=== PATIENT | female | born 1960 | race Caucasian/White ===

== ENCOUNTER 2020-01-06 06:09 | Day surgery (SDC) | payer BC ==
[2019-12-29 15:37] VITALS: BMI 33.2
[2020-01-06] MEDS ORDERED: BUPIVACAINE HCL 0.25% 125 MG/50 ML VIAL ONE (07:18)
[2020-01-06] MEDS ORDERED: MIDAZOLAM HCL 2 MG/2 ML SINGLE DOSE VIAL ONE (07:25)
[2020-01-06] MEDS ORDERED: SUCCINYLCHOLINE CHLORIDE 200 MG/10 ML SYRINGE ONE (07:25)
[2020-01-06] MEDS ORDERED: PROPOFOL 20 ML ONE ×3 (07:25→09:24)
[2020-01-06] MEDS ORDERED: ROCURONIUM BROMIDE 50 MG/5 ML SYRINGE ONE (07:25)
[2020-01-06] MEDS ORDERED: KETOROLAC TROMETHAMINE 30 MG/1 ML VIAL ONE ×2 (07:26→10:00)
[2020-01-06] MEDS ORDERED: ONDANSETRON 4 MG/2 ML VIAL ONE ×3 (07:26→10:05)
[2020-01-06] MEDS ORDERED: LIDOCAINE HCL/PF 2% SDV 5ML VIAL ONE ×2 (07:26→10:00)
[2020-01-06] MEDS ORDERED: ceFAZolin SODIUM 1 GM VIAL ONE ×2 (07:26→10:00)
[2020-01-06] MEDS ORDERED: LIDOCAINE HCL 2% JELLY (5 ML/TUBE) ONE ×2 (07:26→10:00)
[2020-01-06] MEDS ORDERED: DEXAMETHASONE SOD PHOSPHATE 4 MG/1 ML VIAL ONE ×2 (07:26→10:00)
[2020-01-06] MEDS ORDERED: SCOPOLAMINE HYDROBROMIDE 1 PATCH PATCH.TD72 ONE (07:32)
[2020-01-06] MEDS ORDERED: ALBUTEROL SO4 HFA INHALER IH ONE (07:33)
[2020-01-06] MEDS ORDERED: BUPIVACAINE HCL/PF 0.25% (2.5MG/ML) 10 ML VIAL IJ ONE (09:05)
[2020-01-06] MEDS ORDERED: NEOSTIGMINE METHYLSULFATE 0.5 MG/ML - 10 ML MDV ONE (09:23)
[2020-01-06] MEDS ORDERED: GLYCOPYRROLATE 0.2 MG/1 ML VIAL ONE (09:23)
[2020-01-06] MEDS ORDERED: ENOXAPARIN NA (PORCINE) 40 MG/0.4 ML DISP.SYRIN SQ ONE ×2 (09:41→13:20)
[2020-01-06] MEDS ORDERED: oxyCODONE HCL 5 MG TABLET PO PRN ×2 (09:41→11:12)
[2020-01-06] MEDS ORDERED: ONDANSETRON 4 MG/2 ML VIAL IVPUSH PRN (09:44)
[2020-01-06] MEDS ORDERED: SODIUM CHLORIDE 1,000 ML IV SCH (09:45)
--- NOTE | 2020-01-06 09:50 | OP ---
Operative Note - Note: Operative Date: 01/06/20 Pre-Operative Diagnosis: Epigastric Pain. GE Reflux Disease. Vomiting Operation: Removal of Gastric Band plus subcutaneous port. Excision of fibrous capsule around stomach. Diagnostic Laparoscopy Findings: Gastric Band with significant scar tissue around Band and embedded into left lobe of liver Post-Operative Diagnosis: Same as Pre-op (Fibrous capsule around stomach) Surgeon: Uli Palomino Airplane Patroller: Gustabo Blanchard Anesthesia: General Specimens Removed: Gastric Band plus subcutaneous port Estimated Blood Loss (mls): 30 Operative Report Dictated: Yes
[2020-01-06] MEDS ORDERED: FAMOTIDINE 20 MG/50 ML IVPB 20 MG/50 ML MG IVPB SCH (10:00)
[2020-01-06] MEDS ORDERED: FAMOTIDINE 20 MG/50 ML IVPB 20 MG/50 ML MG IVPB ONE (10:05)
[2020-01-06] MEDS ORDERED: FAMOTIDINE 20 MG PREMIXED IVPB IVPB ONE (10:10)
--- NOTE | 2020-01-06 11:14 | OP ---
DATE OF OPERATION: 01/06/2020 PREOPERATIVE DIAGNOSES: 1. Epigastric abdominal pain. 2. Gastroesophageal reflux disease. 3. Vomiting. POSTOPERATIVE DIAGNOSES: 1. Epigastric abdominal pain. 2. Gastroesophageal reflux disease. 3. Vomiting. 4. Fibrous capsule around the band. PROCEDURES PERFORMED: 1. Removal of gastric band plus subcutaneous port component. 2. Excision of fibrous capsule around the band. 3. Diagnostic laparoscopy. OPERATING SURGEON: Uli Palomino MD. DIESEL TECHNICIAN MECHANIC: Gustabo Blanchard MD ANESTHESIA: General. EXPECTED BLOOD LOSS: 30 mL. DESCRIPTION OF PROCEDURE: Patient was brought into the operating room, placed on the OR table in the supine position. All precautions were taken initially including padding for the back and the feet, and Venodyne boots were placed on both lower extremities. At that point, the abdomen was prepped and draped in the usual manner. A Veress needle was placed in the left upper quadrant, and a pneumoperitoneum was established. Using a laparoscopic camera through a No. 5 trocar under direct vision, attempts were made to place this trocar into the left upper quadrant location. However, once entering the peritoneum, there were noted to be adhesions, so the trocar needs to be withdrawn from the abdominal cavity. At that point, an incision was made above the umbilicus, and a No. 5 bladeless trocar under direct vision with the camera was placed into the abdominal cavity. Once this was done, the camera was placed into the abdomen. There were noted to be a large amount of adhesions, which included mostly omentum up against the abdominal wall. Under direct vision, a No. 5 bladeless trocar was then placed through the left costal margin, and the camera was placed through that trocar. That trocar was able to give vision in the right upper quadrant where a No. 5 bladeless trocar was placed. The No. 5 bladeless trocar above the umbilicus was now replaced under direct vision with a No. 15 bladeless trocar, and finally, a No. 5 bladeless trocar was placed in the left upper quadrant under direct vision to avoid the adhesions. At this junction, a Danya liver retractor was placed in the epigastrium to retract the left lobe of the liver. The patient was then placed in a 20-degree reverse Trendelenburg position by Anesthesia. The band tubing was noted going to the band, and the band was then seen very high up just below the esophagogastric junction with significant scar tissue. The band was also embedded into the liver. As the diversional therapist's assistant surgeon retracted the band tubing toward the patient's left side, the operating surgeon was able to dissect with the electrocautery a fibrous capsule and scar tissue off the band on the lesser curvature side. This continued to go medially toward the lesser curvature until the entire band on the lesser curvature was now exposed. The band tubing just off the band was now embedded into the undersurface of the left lobe of the liver, and this was dissected free with electrocautery until the tubing was now free from the liver. At this point, the operating surgeon retracted the band toward the patient's right side as the diversional therapist's assistant surgeon retracted the stomach inferiorly. Further scar tissue on the greater curvature side of the band was now dissected until the band was in full view. The band was then cut with the scissors and opened up and then the band tubing was cut at the take off to the subcutaneous port. The band was then removed from around the stomach in 1 piece and sent off the field as specimen to Pathology. Attention was directed to the stomach where there appeared to be no signs of any injury to the stomach wall, so at this point with the intra-abdominal portion complete, under direct vision, all trocars were removed with the pneumoperitoneum released. Attention was now directed to the subcutaneous port just above the umbilicus. The incision was extended for a short distance to the patient's right side, and the electrocautery was used to dissect the subcutaneous fat and the fibrous capsule around the port. Once the port was free of fibrous capsule, it was removed from the midline fascia and sent off the field as specimen to Pathology with the rest of the band specimen. At this point, all trocar sites received 0.25% Marcaine. The No. 15 trocar site with the port was first closed with 3-0 Vicryl in the subcutaneous tissue then all trocar sites were closed with 4-0 Biosyn in subcuticular fashion. Dressings were applied. Patient awoken from anesthesia and transferred out of the operating room to the recovery room in stable condition. Sawyer [id number]
[2020-01-06] MEDS ORDERED: ENOXAPARIN NA (PORCINE) 40 MG/0.4 ML DISP.SYRIN SQ SCH (12:00)
[2020-01-06] MEDS ORDERED: PROMETHAZINE HCL 25 MG/1 ML VIAL ONE (12:52)
[2020-01-06 15:45] VITALS: BP 131/77; PULSE 74; TEMP 98.2
--- NOTE | 2020-01-09 16:11 | PATH ---
Surgical Pathology Report Patient Name: EVAN GRAHAM Med. Rec. #: [id number] /Age/Gender: 1960 (Age: 59) / F Account: [id number] Location: [facility] Taken: 01/06/2020 Received: 01/06/2020 Reported: 01/09/2020 Physicians: Uli Palomino M.D. Specimen(s) Received GASTRIC BAND & PORT Clinical History Mechanical complication Final Diagnosis GASTRIC BAND AND PORT, REMOVAL: GASTRIC BAND AND PORT, DESCRIBED (GROSS EXAMINATION ONLY). Electronically Signed Anne Rae M.D. Gross Description Received fresh labeled "gastric band and port," is a 4 cm in diameter white, circular device, consistent with a gastric band. The band displays a 23 cm in length portion of white tubing extending from one aspect. Also received in the same container is a 3 cm in diameter x 1.5 cm in depth white, circular device, consistent with a port. The port displays a 31 cm in length portion of white tubing extending from one aspect. No soft tissue is present. No sections are submitted, gross only. 01/06/2020 saudi01/06/2020
== END 2020-01-06 14:15 | disposition home or self-care (01) ==
LOC: FASU 06:09
PROVIDERS: ATTEND Surgery
PROC: 0DP60CZ Removal of Extraluminal Device from Stomach, Open Approach (ICD-10-PCS; 2020-01-06)
PROC: 0DN64ZZ Release Stomach, Percutaneous Endoscopic Approach (ICD-10-PCS; 2020-01-06)
PROC: 0DP64CZ Removal of Extraluminal Device from Stomach, Percutaneous Endoscopic Approach (ICD-10-PCS; principal; 2020-01-06 08:13)
DX: R10.13 Epigastric pain (principal); K21.9 Gastro-esophageal reflux disease without esophagitis; R11.10 Vomiting, unspecified; K31.89 Other diseases of stomach and duodenum; Z98.84 Bariatric surgery status
CPT/HCPCS: 88300-TC; 94760

== ENCOUNTER 2020-05-21 08:37 | Day surgery (SDC) | payer BC ==
[2020-05-14 12:15] VITALS: BMI 35.2
[2020-05-21] MEDS ORDERED: PROPOFOL 20 ML ONE ×3 (10:23→13:31)
[2020-05-21] MEDS ORDERED: ceFAZolin SODIUM 1 GM VIAL ONE (10:23)
[2020-05-21] MEDS ORDERED: SODIUM CHLORIDE 0.9% P/F 10 ML VIAL IJ ONE ×2 (10:23→11:50)
[2020-05-21] MEDS ORDERED: DEXAMETHASONE SOD PHOSPHATE 4 MG/1 ML VIAL ONE (10:23)
[2020-05-21] MEDS ORDERED: fentaNYL CITRATE 250 MCG/5 ML VIAL ONE (10:23)
[2020-05-21] MEDS ORDERED: LIDOCAINE HCL/PF 2% SDV 5ML VIAL ONE ×2 (10:23→12:39)
[2020-05-21] MEDS ORDERED: ROCURONIUM BROMIDE 50 MG/5 ML SYRINGE ONE ×2 (10:29→13:36)
[2020-05-21] MEDS ORDERED: BUPIVACAINE HCL/PF 2.5 MG/ML - 30 ML VIAL IJ ONE (10:31)
[2020-05-21] MEDS ORDERED: ONDANSETRON 4 MG/2 ML VIAL IVPUSH PRN ×3 (10:43→15:23)
[2020-05-21] MEDS ORDERED: oxyCODONE HCL 5 MG TABLET PO PRN (10:43)
[2020-05-21] MEDS ORDERED: LACTATED RINGERS SOLUTION 1,000 ML IV SCH (10:45)
[2020-05-21] MEDS ORDERED: ACETAMINOPHEN INJECTION 100 ML IVPB ONE (11:37)
[2020-05-21] MEDS ORDERED: HALOPERIDOL LACTATE 5 MG/ML ONE (11:37)
[2020-05-21] MEDS ORDERED: SCOPOLAMINE HYDROBROMIDE 1 PATCH PATCH.TD72 ONE (11:37)
[2020-05-21] MEDS ORDERED: MIDAZOLAM HCL 2 MG/2 ML SINGLE DOSE VIAL ONE (11:40)
[2020-05-21] MEDS ORDERED: ROPIVACAINE HCL 0.5% 30ML VIAL ONE (11:40)
[2020-05-21] MEDS ORDERED: NEOSTIGMINE METHYLSULFATE 0.5 MG/ML - 10 ML MDV ONE (12:15)
[2020-05-21] MEDS ORDERED: GLYCOPYRROLATE 0.2 MG/1 ML VIAL ONE (12:15)
[2020-05-21] MEDS ORDERED: ONDANSETRON 4 MG/2 ML VIAL ONE ×2 (12:16→14:50)
[2020-05-21] MEDS ORDERED: HYDROmorphone HCL/PF 1 MG/ML VIAL ONE (13:05)
[2020-05-21] MEDS ORDERED: LABETALOL HCL 5 MG/1 ML (100MG/20 ML VIAL) ONE ×2 (13:36→14:50)
[2020-05-21] MEDS ORDERED: HYDROmorphone HCL CARPU-JECT 2 MG/1 ML DISP.SYRIN IVPB PRN (14:36)
[2020-05-21] MEDS ORDERED: METOCLOPRAMIDE HCL INJECTION 10 MG/2 ML VIAL ONE (14:43)
[2020-05-21] MEDS ORDERED: SODIUM CHLORIDE 1,000 ML IV SCH ×2 (14:45→15:15)
--- NOTE | 2020-05-21 14:45 | OP ---
Operative Note - Note: Operative Date: 05/21/20 Pre-Operative Diagnosis: Ventral Abdominal Hernia Operation: Repair of Ventral Abdominal Hernia with Mesh. Lysis of adhesions. Diagnostic Laparoscopy Findings: Moderate-sized Ventral Abdominal Hernia with Colon noted with hernia sac. Adhesions lysed between hernia sac,omentum and abdominal contents Post-Operative Diagnosis: Same as Pre-op (abdominal adhesions) Surgeon: Uli Palomino Air Traffic Instructor: Gustabo Blanchard Anesthesia: General Estimated Blood Loss (mls): 100 Operative Report Dictated: Yes
[2020-05-21] MEDS ORDERED: METOCLOPRAMIDE HCL INJECTION 10 MG/2 ML VIAL IVPUSH ONE (14:46)
[2020-05-21] MEDS ORDERED: METOCLOPRAMIDE HCL INJECTION 10 MG/2 ML VIAL IVPUSH SCH (15:00)
[2020-05-21] MEDS ORDERED: FAMOTIDINE 20 MG PREMIXED IVPB IVPB ONE (15:00)
[2020-05-21 15:32] LABS: HEMATOCRIT 41.8 % (32.4-45.2); HEMOGLOBIN 14.2 GM/dl (10.7-15.3); MCH 29.9 pg (25.7-33.7); MEAN CELL VOLUME 87.8 fl (80-96); MEAN PLT VOLUME 8.8 fl (7.5-11.1); PLATELET COUNT 293 K/MM3 (134-434); RBC 4.76 M/mm3 (3.60-5.2); RDW 13.8 % (11.6-15.6); WHITE BLOOD COUNT 13.4 K/mm3 (4.0-10.8)
[2020-05-21 15:48] LABS: ALBUMIN 3.8 g/dl (3.4-5.0); BILIRUBIN,TOTAL 0.7 mg/dl (0.2-1); CALCIUM 8.4 mg/dl (8.5-10); CREATININE 0.8 mg/dl (0.55-1.3); POTASSIUM 4.1 mmol/L (3.5-5.1); TOT PROT 6.4 g/dl (6.4-8.2)
[2020-05-21] MEDS ORDERED: HYDROmorphone HCL 0.5 MG/0.5 ML SYRINGE ONE ×2 (15:59→16:19)
[2020-05-21] MEDS ORDERED: LABETALOL HCL 5 MG/1 ML (100MG/20 ML VIAL) IVPUSH ONE (15:59)
[2020-05-21] MEDS: HYDROmorphone HCL CARPU-JECT 2 MG/1 ML DISP.SYRIN IVPB PRN ×2 (16:00→16:20)
[2020-05-21] MEDS: METOCLOPRAMIDE HCL INJECTION 10 MG/2 ML VIAL IVPUSH SCH (20:52)
[2020-05-21] MEDS: oxyCODONE HCL 5 MG TABLET PO PRN (21:02)
[2020-05-21] MEDS: FAMOTIDINE 20 MG/50 ML IVPB 20 MG/50 ML MG IVPB SCH (21:07)
[2020-05-22] MEDS: oxyCODONE HCL 5 MG TABLET PO PRN ×2 (00:52→05:42)
[2020-05-22] MEDS: METOCLOPRAMIDE HCL INJECTION 10 MG/2 ML VIAL IVPUSH SCH ×2 (02:17→09:33)
[2020-05-22 05:50] VITALS: BP 135/82; PULSE 82; TEMP 98.2
[2020-05-22 08:15] LABS: HEMATOCRIT 37.5 % (32.4-45.2); HEMOGLOBIN 12.5 GM/dl (10.7-15.3); MCH 29.2 pg (25.7-33.7); MCHC 33.3 g/dl (32.0-36.0); MEAN CELL VOLUME 87.6 fl (80-96); MEAN PLT VOLUME 8.4 fl (7.5-11.1); PLATELET COUNT 246 K/MM3 (134-434); RBC 4.28 M/mm3 (3.60-5.2); RDW 13.5 % (11.6-15.6); WHITE BLOOD COUNT 8.7 K/mm3 (4.0-10.8)
[2020-05-22 08:19] LABS: ALBUMIN 3.6 g/dl (3.4-5.0); BILIRUBIN,TOTAL 0.9 mg/dl (0.2-1); CALCIUM 8.7 mg/dl (8.5-10); CREATININE 0.8 mg/dl (0.55-1.3); POTASSIUM 4.8 mmol/L (3.5-5.1); TOT PROT 5.9 g/dl (6.4-8.2)
[2020-05-22] MEDS: FAMOTIDINE 20 MG/50 ML IVPB 20 MG/50 ML MG IVPB SCH (09:33)
--- NOTE | 2020-05-22 11:01 | OP ---
DATE OF OPERATION: 05/21/2020 PREOPERATIVE DIAGNOSIS: Ventral abdominal wall hernia. POSTOPERATIVE DIAGNOSES: 1. Ventral abdominal wall hernia. 2. Abdominal adhesions. PROCEDURE PERFORMED: 1. Repair of ventral abdominal wall hernia with mesh. 2. Lysis of adhesions. 3. Diagnostic laparoscopy. OPERATING SURGEON: Uli Palomino MD METAL HARDENER: Gustabo Blanchard MD ANESTHESIA: General. OPERATIVE PROCEDURE: Patient was brought into the operating room, placed on the OR table in the supine position. All precautions taken initially including padding for the back, and Venodyne boots were placed on both lower extremities. At that point the abdomen was prepped and draped in the usual manner. A Veress needle was placed in the left upper quadrant more lateral than usual to get away from the midline abdominal wall hernia. In the left upper quadrant under direct vision with a laparoscope, a No. 5 bladeless trocar was placed in the left upper quadrant. Through that trocar, a laparoscopic camera was placed. Immediately upon placing the camera, noted to be a large amount of adhesions between the colon and the anterior abdominal wall right in front of the camera. Because of the improper visualization, under direct vision a No. 5 bladeless trocar was placed in the right side more lateral and slightly more inferior. The laparoscopic camera was now placed through that port. This was able to give a true diagnostic laparoscopy of the entire abdomen, and it showed that the hernia off the midline on the right side in the area of falciform ligament, but there was a lot of colon and mesentery stuck to the abdominal wall. It was felt that it would be dangerous to continue laparoscopically, so it was decided that the procedure would be converted to an open technique. At that point, a scalpel was used to make an incision over the hernia just above the midline at above the umbilicus. This incision went for about 5 cm transversely, and then electrocautery was used to dissect the subcutaneous tissue until the hernia contents were come upon. The skin was lifted up, and the content between the hernia sac and the subcutaneous tissue was then dissected with electrocautery as the administrative assistant receptionist surgeon continued to retract the skin. The edge of the fascia, which was the hernia on the upper portion or superior portion, was now addressed, and electrocautery was used to dissect all the fat and scar tissue off of that until the fascia was noted on the superior portion of the hernia wall. In a clockwise direction, this was extended to the right side of the abdomen where again the fascia was cleaned of all scar tissue and of all subcutaneous fat, and this continued in a circular drain until the entire fascia surrounding the hernia was now clear. At this point, carefully dissecting the hernia sac off of the rim of fascia in order to better expose the fascia for proper repair. The hernia sac was entered, and evaluation of the contents showed the transverse colon, which was returned to the abdominal cavity with no sign of injury. Small bowel was also lifted up and explored for about 4 feet in both directions without sign of injury, and these were then returned to the abdominal cavity. The hernia sac was then dissected off of the fascia and returned to the abdominal cavity. At this point, a double closure was performed, initial closure being primary to close the fascia over the content of the abdominal cavity. This included 0 Vicryl sutures placed in an interrupted fashion, [id number], from superior to inferior. This was then followed by an onlay mesh, which was a composite mesh, placed over the repair and over the fascia, and then 0 Prolene sutures were used in a clockwise direction to tack this down to the fascia. When it was completed, the repair appeared intact. There was a large amount of subcutaneous space which was worrisome, so therefore a Silvano-Simeon drain was placed and brought out of the right side of the abdomen. Closure of the subcutaneous tissue was performed to try to close the space. This was done with 3-0 Vicryl in interrupted fashion, and then the skin was closed with alecia. Patient awoken from anesthesia and transferred out of the operating room to the recovery room in stable condition. EXPECTED BLOOD LOSS: 100 mL. DISPOSITION: Patient transferred to recovery room in stable condition. Sawyer [id number]
--- NOTE | 2020-05-22 11:03 | PN ---
Progress Note (short form) - Note Progress Note: Afebrile; VSS Pt doing well No N/V- on Reglan, Zofran (PRN) States moderate mid-abdominal pain near incision P/E- Abd- all incisions with band-aids (no drainage noted) WBC-8.7 H/H-12.5/37.5 J-P drain- 60 cc/24 hours P- D/C pt home All instructions given regarding wound care, measuring J-P drainage daily F/U in 7-10 days in office
--- NOTE | 2020-05-22 13:59 | DS ---
DATE OF ADMISSION: 05/21/2020 DATE OF DISCHARGE: 05/22/2020 HISTORY OF PRESENT ILLNESS AND HOSPITAL COURSE: Patient is a 59-year-old woman with a history of abdominal hernia for a few months. The hernia became more symptomatic and decided to undergo operative repair. Patient admitted to [facility] on May 21, 2020, and underwent an open ventral hernia repair with mesh. The details of the procedure are described in the operative note. Postoperatively the patient was sent to the recovery room where she was stabilized and then sent to the floor. On the medical-surgical floor the patient had significant pain because the bowel hernia was larger than originally anticipated. It required more dissection and a larger repair and a larger use of mesh. Because of the problem with pain control and also a lot of nausea after anesthesia it was decided that patient would need to be admitted overnight for further observation and treatment of the pain and nausea. Patient had an uneventful night and on the morning of May 22, 2020, with normal vital signs and normal lab work the patient is ambulating slowly because of discomfort in the abdomen. She was given full instructions for wound care and proper diet and she is scheduled to be discharged home on May 22, 2020. Patient will follow up in the surgeon's office in 7-10 days. JACKIE WATSON M.D. [id number]
== END 2020-05-22 13:15 | disposition home or self-care (01) ==
LOC: FASUSAT 08:37 → FASU 08:37 → EDSTATUS 13:00 → FM/S 17:41 → FASUSAT 05-22 13:15
PROVIDERS: ATTEND Surgery
PROC: 0WUF0JZ Supplement Abdominal Wall with Synthetic Substitute, Open Approach (ICD-10-PCS; 2020-05-21)
PROC: 0WJF4ZZ Inspection of Abdominal Wall, Percutaneous Endoscopic Approach (ICD-10-PCS; 2020-05-21)
PROC: 0WUF0JZ Supplement Abdominal Wall with Synthetic Substitute, Open Approach (ICD-10-PCS; principal; 2020-05-21 12:27)
DX: K43.9 Ventral hernia without obstruction or gangrene (principal); K66.0 Peritoneal adhesions (postprocedural) (postinfection); Z53.31 Laparoscopic surgical procedure converted to open procedure
CPT/HCPCS: 36415; 74018-TC-FY; 80053; 85027; 94760; J0131

== ENCOUNTER 2020-06-07 13:46 | Inpatient (IN) | payer BC ==
--- NOTE | 2020-06-07 13:59 | PDOC ---
Attending Attestation - Resident Resident Name: Janes Olsen - ED Attending Attestation I have performed the following: I have examined & evaluated the patient, The case was reviewed & discussed with the resident, I agree w/resident's findings & plan, Exceptions are as noted - HPI HPI: 06/07/20 13:52 60YOF with h/o gastric band now s/p removal in 12/[address] Palomino (also with laparoscopy and excision of fibrous capsule around stomach), subsequent ventral hernia s/p repair 04/[address] Palomino, who p/w abdominal cramping. Discharge - Discharge Information Condition: Stable - Follow up/Referral Referrals: Uli Palomino MD [Primary Care Provider] - - Patient Discharge Instructions - Post Discharge Activity
--- NOTE | 2020-06-07 14:11 | PDOC ---
History of Present Illness - General Chief Complaint: Pain, Acute Stated Complaint: LOWER ABDOMINAL CRAMPING PAIN FOR 4 DAys Time Seen by Provider: 06/07/20 13:51 History Source: Patient Exam Limitations: No Limitations - History of Present Illness Initial Comments: 06/07/20 14:00 60YOF with h/o gastric band now s/p removal in 12/[address] Palomino (also with laparoscopy and excision of fibrous capsule around stomach), subsequent ventral hernia s/p repair 04/[address] Palomino, who p/w abdominal cramping worse in the left upper and lower quadrants and radiating to the RLQ x4 days. Also with h/o kidney stones, diverticulosis without diverticulitis, has had colonoscopy in the past which was otherwise negative. Was just at Dr. Palomino's office with the pain and was instructed to come to the ED for a CT and evaluation. She additionally notes nausea but denies f/c, diarrhea, constipation, rectal bleeding or black stool, dysuria, hematuria, vaginal bleeding/discharge, back pain, or other symptoms. Still had her gallbladder with no known h/o stones. Past History - Medical History Allergies/Adverse Reactions: Allergies Allergy/AdvReac Type Severity Reaction Status Date / Time ketamine AdvReac Intermediate Verified 06/07/20 14:30 Home Medications: Ambulatory Orders Alprazolam [Xanax] 1 mg PO PRN PRN 12/29/19 Budesonide/Formeterol Fumarate [SYMBICORT 160/4.5mcg -] 2 inh IH BID 12/29/19 Multivitamin [Multiple Vitamins] 1 each PO DAILY 12/29/19 Omeprazole 20 mg PO DAILY 12/29/19 Zinc 50 mg PO DAILY 12/29/19 Anemia: No Asthma: Yes Cancer: Yes (skin CA) Cardiac Disorders: No CVA: No COPD: No CHF: No Dementia: No Diabetes: No GI Disorders: Yes (GERD/HIATAL HERNIA) Disorders: No HTN: No Hypercholesterolemia: No Liver Disease: No Seizures: No Thyroid Disease: No - Surgical History Abdominal Surgery: Yes (LAP BAND 2004/REMOVED 12/2019) Appendectomy: No Cardiac Surgery: No Cholecystectomy: No Lung Surgery: No Neurologic Surgery: No Orthopedic Surgery: Yes (Jas TKR) - Psycho-Social/Smoking History Smoking History: Never smoked Have you smoked in the past 12 months: No Review of Systems - Review of Systems Able to Perform ROS?: Yes Comments:: 06/07/20 14:13 GEN: no fever, chills, malaise, or generalized weakness HEENT: no ear pain, congestion, sore throat, vision change, or eye pain CV: no chest pain, palpitations, lightheadedness, syncope, or edema RESP: no SOB, wheezing, or cough GI: abdominal pain, nausea, dry heaving, no diarrhea, constipation, or rectal bleed : no dysuria, hematuria, or discharge MSK: no muscle weakness or pain, no joint swelling or pain NEURO: no headache, vertigo, numbness, tingling, or focal weakness PSYCH: no SI, HI, or behavior change SKIN: no jaundice, rash, lesions, or unexplained bruises ROS otherwise negative except as noted in HPI *Physical Exam - Physical Exam 06/07/20 14:14 GENERAL: uncomfortable and occasionally yelling in pain, splinting abdomen with left hand, A/Ox4, moderate distress, answers questions appropriately, significant other at bedside HEENT: PERRLA, EOMI, moist mucous membranes NECK/BACK: no midline ttp, no spinal stepoff or deformity, no hematoma, full ROM, neck supple CARDIOVASCULAR: regular rate/rhythm, no MGR, strong peripheral pulses, capillary refill <2 seconds, extremities wwp, no edema LUNGS/RESPIRATORY: no respiratory distress, CTAB GI/ABDOMEN: abdomen protuberant, wearing abdominal binder initially, +moderate ttp : no CVA tenderness MSK/EXTREMITIES: no muscle atrophy, no acute deformity SKIN: warm and dry, no pallor, no jaundice, no rash, no pathologic-appearing bruising, no skin breakdown, no cuts, no lesions NEUROLOGICAL: GCS 15, CN II-XII grossly intact, 5/5 strength proximally and distally, no facial droop Heart Score/ECG Review #1 06/07/20 14:38 Sinus rhythm, rate 101, left axis deviation, normal intervals, ST depressions in II and slightly in aVF/V3-4, TWI in III/aVF. No prior EKG available for comparison. ED Treatment Course - LABORATORY CBC & Chemistry Diagram: 06/07/20 14:20 06/07/20 14:15 Medical Decision Making - Medical Decision Making 60YOF with h/o multiple abdominal surgeries with lap band s/p removal, also hernia repair 2-3 weeks ago, p/w abdominal pain and nausea. Initial Vital Signs Temp Pulse Resp BP Pulse Ox 99.7 F H 104 H 20 135/91 98 06/07/20 13:47 06/07/20 13:47 06/07/20 13:47 06/07/20 13:47 06/07/20 13:47 On exam she is tender to left side diffusely, protuberant abdomen, moderate dis tress which seems to come and go (colicky?). There is concern for hollow viscous perforation, hernia (w/ possible incarceration/strangulation), PUD, internal hernia, SBO, diverticulitis, renal rolic, JOURNEYMAN MILLWRIGHT pathology e.g. ovarian torsion, etc. Less likely but also considered are biliary pathology and appendicitis, etc. Getting abdominal labs as below, also EKG, portable upright CXR r/o free air, also CT abdomen/pelvis with IV and PO contrast given the fact that she had bariatric surgeries 06/07/20 15:19 No e/o pneumoperitoneum on upright portable CXR. Appears much more comfortable after morphine + Zofran. BUN elevated and ordered/sent FOBT. Last Vital Signs Temp Pulse Resp BP Pulse Ox 100.8 F H 104 H 20 146/89 100 06/07/20 14:45 06/07/20 14:45 06/07/20 14:45 06/07/20 14:45 06/07/20 14:45 Laboratory Tests 06/07/20 06/07/20 06/07/20 14:15 14:15 14:20 WBC 4.9 RBC 5.05 Hgb 14.8 Hct 44.4 D MCV 87.8 MCH 29.3 MCHC 33.4 RDW 13.2 Plt Count 308 MPV 8.3 Absolute Neuts (auto) 3.1 Neutrophils % 63.2 Lymphocytes % 20.7 Monocytes % 12.4 H Eosinophils % 2.8 Basophils % 0.9 PT with INR INR PTT (Actin FS) Sodium 140 Potassium 4.2 Chloride 97 L Carbon Dioxide 24 Anion Gap 19 H BUN 34.0 H Creatinine 0.8 Est GFR (CKD-EPI)AfAm 92.87 Est GFR (CKD-EPI)NonAf 80.13 Random Glucose 109 H Lactic Acid Calcium 9.7 Phosphorus 4.5 Magnesium 1.9 Total Bilirubin 1.5 H AST 30 ALT 14 Alkaline Phosphatase 71 D Creatine Kinase 50 Troponin I < 0.03 Total Protein 7.3 Albumin 4.0 Stool Occult Blood 06/07/20 06/07/20 06/07/20 14:20 14:22 15:30 WBC RBC Hgb Hct MCV MCH MCHC RDW Plt Count MPV Absolute Neuts (auto) Neutrophils % Lymphocytes % Monocytes % Eosinophils % Basophils % PT with INR 12.9 INR 1.16 PTT (Actin FS) 23.3 L Sodium Potassium Chloride Carbon Dioxide Anion Gap BUN Creatinine Est GFR (CKD-EPI)AfAm Est GFR (CKD-EPI)NonAf Random Glucose Lactic Acid 1.2 Calcium Phosphorus Magnesium Total Bilirubin AST ALT Alkaline Phosphatase Creatine Kinase Troponin I Total Protein Albumin Stool Occult Blood Negative CT shows high-grade SBO. 06/07/20 16:30 I placed a call to Dr. Palomino who is in the clinic still, but with a patient. Message will be given to him about the patient's high-grade SBO and he will call back when he has finished the patient visit per casino assistant manager. 06/07/20 17:[address] Palomino who will see the patient while the hospital, requests admission to hospitalist, consult order placed and blank decision to admit order placed. NG tube to be placed. The patient does remain a bit painful and thus 2mg morphine dosed. Discharge - Discharge Information Problems reviewed: Yes Clinical Impression/Diagnosis: Nausea Abdominal pain Qualifiers: Abdominal location: unspecified location Qualified Code(s): R10.9 - Unspecified abdominal pain Condition: Stable - Admission Yes - Follow up/Referral Referrals: Uli Palomino MD [Primary Care Provider] - - Patient Discharge Instructions - Post Discharge Activity
[2020-06-07] MEDS ORDERED: ONDANSETRON 4 MG/2 ML VIAL IVPUSH ONE (14:12)
[2020-06-07] MEDS ORDERED: SODIUM CHLORIDE 0.9% 500 ML INFUS.BAG IV ONE (14:12)
[2020-06-07] MEDS ORDERED: morphine CARPU-JECT 4 MG/1 ML DISP.SYRIN IVPUSH ONE (14:12)
[2020-06-07] MEDS ORDERED: morphine SULFATE 4 MG/ML VIAL ONE ×2 (14:35→17:01)
[2020-06-07] MEDS ORDERED: ONDANSETRON 4 MG/2 ML VIAL ONE (14:35)
[2020-06-07 14:37] LABS: BASO % 0.9 % (0-2.0); EOS % 2.8 % (0-4.5); HEMATOCRIT 44.4 % (32.4-45.2); HEMOGLOBIN 14.8 GM/dl (10.7-15.3); LYMPH % 20.7 % (8-40); MCH 29.3 pg (25.7-33.7); MCHC 33.4 g/dl (32.0-36.0); MEAN CELL VOLUME 87.8 fl (80-96); MEAN PLT VOLUME 8.3 fl (7.5-11.1); MONO % 12.4 % (3.8-10.2); NEUT % 63.2 % (42.8-82.8); PLATELET COUNT 308 K/MM3 (134-434); RBC 5.05 M/mm3 (3.60-5.2); RDW 13.2 % (11.6-15.6); WHITE BLOOD COUNT 4.9 K/mm3 (4.0-10.8)
[2020-06-07 14:56] LABS: BILIRUBIN,TOTAL 1.5 mg/dl (0.2-1); CALCIUM 9.7 mg/dl (8.5-10); CREATININE 0.8 mg/dl (0.55-1.3); MAGNESIUM 1.9 mg/dL (1.8-2.4); PHOSPHOROUS 4.5 mg/dl (2.5-4.9); POTASSIUM 4.2 mmol/L (3.5-5.1); TOT PROT 7.3 g/dl (6.4-8.2)
[2020-06-07 14:59] LABS: ACTIVATED PTT 23.3 SECONDS (25.2-36.5)
[2020-06-07 15:04] LABS: INR 1.16 (0.82-1.09); PROTHROMBIN TIME (PATIENT) 12.9 SEC (10.2-13.0)
[2020-06-07] MEDS ORDERED: morphine CARPU-JECT 2 MG/1 ML DISP.SYRIN IVPUSH ONE (16:57)
[2020-06-07] MEDS ORDERED: TETRACAINE/BENZOCAINE/BUTAMBEN 20 GM SPR TP ONE (17:29)
[2020-06-07] MEDS ORDERED: LIDOCAINE HCL 2% JELLY (30 ML/TUBE) TP ONE (17:29)
[2020-06-07] MEDS ORDERED: LIDOCAINE HCL 2% JELLY (5 ML/TUBE) ONE (17:30)
--- NOTE | 2020-06-07 17:54 | CONSULT ---
Consult - text type - Consultation Consultation Note: 06/07/2020 60 y.o.female who presents with 3 day history of colicky abdominal pain. Patient states pain is increasing daily and also c/o vomiting. Vomitus not reported as coffee grounds. Pt has been moving her bowels recently. PMH- asthma, anxiety, GERD PSH- Lap-Band (2004), Lap-Band removal (2019), Ventral hernia repair (04/2020) P/E- Gen - Awake, alert, severe episodic pain in abdomen causing distress Abd- abdominal binder in place transverse supra-umbilical incision well-healed alecia removed in office today Ext- no swelling WBC-4.9 H/H-14.8/44.4 BUN/CR-34/0.8 CO2-24 Lactic Acid- 19 CT Scan- High-grade distal SB obstruction I- Small Bowel obstruction Rec- NPO NGT Serial abdominal x-rays Daily labs
[2020-06-07] MEDS ORDERED: DEXTROSE 5%-0.45% SALINE 1,000 ML IV SCH (20:15)
--- NOTE | 2020-06-07 21:11 | HP ---
Admitting History and Physical - Primary Care Physician PCP: Meri Soliz - Admission Chief Complaint: Abdominal Pain History of Present Illness: This is a 60 y/o female with a PMHx of Asthma, GERD, Anxiety, Severe Obesity, s/p Ventral Hernia repair 04/2020, Lap Band removal (12/2019), Lap Band (2004). Who presents to the ED from Dr Palomino's office for severe diffuse abdominal pain, constipation x 3-4 days. Patient reports having NB, bilious vomiting to day. She describes the pain as sharp and constant. Patient denies fever, chills, cough, SOB, dizziness, PALACIOS, CP, diarrhea, hematochezia, dysuria. History Source: Patient Limitations to Obtaining History: No Limitations - Past Medical History Pulmonary: Yes: Asthma Gastrointestinal: Yes: GERD Psych: Yes: Anxiety - Past Surgical History Past Surgical History: Yes: Bariatric Surgery (Lap Band (2004) Lap Band Removal (2019)), Hernia Repair (Ventral (04/2020)) - Smoking History Smoking history: Never smoked Have you smoked in the past 12 months: No - Alcohol/Substance Use Hx Alcohol Use: No History of Substance Use: reports: None - Social History Usual Living Arrangement: Yes: Alone ADL: Independent Occupation: Program Support Clerk History of Recent Travel: No Home Medications - Allergies Allergies/Adverse Reactions: Allergies Allergy/AdvReac Type Severity Reaction Status Date / Time ketamine AdvReac Intermediate Verified 06/07/20 14:30 - Home Medications Home Medications: Ambulatory Orders Alprazolam [Xanax] 1 mg PO PRN PRN 12/29/19 Budesonide/Formeterol Fumarate [SYMBICORT 160/4.5mcg -] 2 inh IH BID 12/29/19 Multivitamin [Multiple Vitamins] 1 each PO DAILY 12/29/19 Omeprazole 20 mg PO DAILY 12/29/19 Zinc 50 mg PO DAILY 12/29/19 Family Medical History Family Hx Coronary Artery Disease: Mother (HTN- ) Family Hx Diabetes: Mother () Family Hx Renal Disease: Mother (ESRD- ) Other Family History: Myelodysplastic Syndrome: Mother- Review of Systems - Review of Systems Constitutional: reports: Loss of Appetite Eyes: reports: No Symptoms HENT: reports: No Symptoms Neck: reports: No Symptoms Cardiovascular: reports: No Symptoms Respiratory: reports: No Symptoms Gastrointestinal: reports: Abdominal Pain, Nausea, Vomiting. denies: Diarrhea, Rectal Bleeding, Vomiting Blood Genitourinary: reports: No Symptoms. denies: Burning, Dysuria, Flank Pain, Hematuria Breasts: reports: No Symptoms Reported Musculoskeletal: reports: No Symptoms Integumentary: reports: No Symptoms Neurological: reports: No Symptoms, Weakness Hematology/Lymphatic: reports: No Symptoms Psychiatric: reports: No Symptoms Pain Intensity: 7 Physical Examination Vital Signs: Vital Signs Temperature 97.9 F 06/07/20 20:40 Pulse Rate 105 H 06/07/20 20:40 Respiratory Rate 18 06/07/20 20:40 Blood Pressure 154/82 06/07/20 20:40 O2 Sat by Pulse Oximetry (%) 98 06/07/20 20:40 Constitutional: Yes: Well Nourished, Mild Distress, Obese Eyes: Yes: WNL, Conjunctiva Clear, EOM Intact, PERRL HENT: Yes: Atraumatic, Normocephalic, Other (NGT- R- nare) Neck: Yes: WNL, Supple, Trachea Midline Cardiovascular: Yes: WNL, Regular Rate and Rhythm, S1, S2 Respiratory: Yes: Regular, CTA Bilaterally Gastrointestinal: Yes: Soft, Abdomen, Obese, Hypoactive Bowel Sounds, Tenderness , Tenderness, Epigastrium, Other (abdominal band- dressing with steri strips) ...Rectal Exam: Yes: Guaiac Negative Renal/: Yes: WNL Breast(s): Yes: WNL Musculoskeletal: Yes: WNL Extremities: Yes: WNL Edema: No Peripheral Pulses WNL: Yes Integumentary: Yes: WNL Wound/Incision: Yes: Steri Strips (abdomen), Dressing Dry and Intact (abdomen) Neurological: Yes: WNL, Alert, Oriented, Cran Nerves II-XII Intact ...Motor Strength: WNL Psychiatric: Yes: WNL, Alert, Oriented Labs: CBC, BMP 06/07/20 14:20 06/07/20 14:15 Imaging - Results Chest X-ray: Report Reviewed, Image Reviewed Cat Scan: Report Reviewed, Image Reviewed EKG: Pending Problem List - Problems (1) SBO (small bowel obstruction) Assessment/Plan: - CTAP image, report reviewed- High Grade SBO - Surgery following, notes reviewed - Continue IVF - NGT placed in ED - NGT low wall suction - Serial Abdominal Xrays - Monitor CBC, CMP - Monitor vitals - NPO Code(s): K56.609 - UNSP INTESTNL OBST, UNSP TO PARTIAL VERSUS COMPLETE OBST (2) Asthma Assessment/Plan: - stable - No acute flare - Chest Xray image and report reviewed- lungs clear, no acute pathology - Albuterol MDI, neb prn - Monitor Spo2, vitals Code(s): J45.909 - UNSPECIFIED ASTHMA, UNCOMPLICATED (3) GERD (gastroesophageal reflux disease) Assessment/Plan: - stable - Continue PPI IV Code(s): K21.9 - GASTRO-ESOPHAGEAL REFLUX DISEASE WITHOUT ESOPHAGITIS (4) Anxiety Assessment/Plan: - stable - Ativan IV prn Code(s): F41.9 - ANXIETY DISORDER, UNSPECIFIED (5) Severe obesity (BMI 35.0-35.9 with comorbidity) Assessment/Plan: - s/p Lap band, removal - Consider RD eval, when pts condition improves Code(s): E66.01 - MORBID (SEVERE) OBESITY DUE TO EXCESS CALORIES; Z68.35 - BODY MASS INDEX (BMI) 35.0-35.9, ADULT Assessment/Plan This is a 60 y/o female with a PMHx of Asthma, GERD, Anxiety, Severe Obesity, s/p Ventral Hernia repair 04/2020, Lap Band removal (12/2019), Lap Band (2004). Admitted for SBO for further evaluation of their emergent condition. Plan: See Problem List FEN - D50.45%NS@83ml/hr - Replete lytes prn - NPO DVT ppx - OOB - SCDs - Lovenox SQ Dispo: Requires Inpatient Care Visit type - Emergency Visit Emergency Visit: Yes ED Registration Date: 06/07/20 Care time: The patient presented to the Emergency Department on the above date and was hospitalized for further evaluation of their emergent condition. - New Patient This patient is new to me today: Yes Date on this admission: 06/07/20 - Critical Care Critical Care patient: No
[2020-06-07] MEDS: ACETAMINOPHEN 1000 MG/100 ML VIAL (NON FORMULARY) IVPB PRN (22:16)
[2020-06-07] MEDS ORDERED: TETRACAINE/BENZOCAINE/BUTAMBEN 20 GM SPR TP PRN ×2 (22:23→22:46)
[2020-06-07 23:29] LABS: EPITHELIAL CELLS RARE /hpf
[2020-06-07] MEDS ORDERED: PHENOL 177 ML SPRAY BOTTLE MM PRN (23:32)
[2020-06-08] MEDS: ACETAMINOPHEN 1000 MG/100 ML VIAL (NON FORMULARY) IVPB PRN ×3 (04:18→14:46)
[2020-06-08 08:10] LABS: ALBUMIN 3.4 g/dl (3.4-5.0); BASO % 0.5 % (0-2.0); BILIRUBIN,TOTAL 0.6 mg/dl (0.2-1); CREATININE 0.7 mg/dl (0.55-1.3); EOS % 4.7 % (0-4.5); HEMATOCRIT 37.4 % (32.4-45.2); LYMPH % 17.8 % (8-40); MCH 30.2 pg (25.7-33.7); MCHC 34.7 g/dl (32.0-36.0); MEAN CELL VOLUME 87.1 fl (80-96); MEAN PLT VOLUME 8.2 fl (7.5-11.1); MONO % 14.3 % (3.8-10.2); NEUT % 62.7 % (42.8-82.8); PLATELET COUNT 296 K/MM3 (134-434); POTASSIUM 3.6 mmol/L (3.5-5.1); RBC 4.29 M/mm3 (3.60-5.2); RDW 12.6 % (11.6-15.6); TOT PROT 6.1 g/dl (6.4-8.2); WHITE BLOOD COUNT 4.2 K/mm3 (4.0-10.8)
[2020-06-08] MEDS: PANTOPRAZOLE SODIUM 40 MG VIAL IVPUSH SCH (09:36)
[2020-06-08] MEDS: ENOXAPARIN NA (PORCINE) 40 MG/0.4 ML DISP.SYRIN SQ SCH (09:36)
--- NOTE | 2020-06-08 10:20 | EKG ---
Test Reason : Blood Pressure : / mmHG Vent. Rate : 101 BPM Atrial Rate : 101 BPM P-R Int : 138 ms QRS Dur : 082 ms QT Int : 354 ms P-R-T Axes : 025 -31 -23 degrees QTc Int : 459 ms SINUS TACHYCARDIA POSSIBLE LEFT ATRIAL ENLARGEMENT LEFT AXIS DEVIATION INFERIOR INFARCT , AGE UNDETERMINED POSSIBLE ANTERIOR INFARCT , AGE UNDETERMINED NONSPECIFIC ST ABNORMALITY ABNORMAL ECG NO PREVIOUS ECGS AVAILABLE Confirmed by SONU GERARDO MD ([id number]) on 06/08/2020 10:20:27 AM Referred By: ROSA M GREEN Confirmed By:SONU GERARDO MD
--- NOTE | 2020-06-08 10:35 | PN ---
Progress Note, Physician - Current Medication List Current Medications: Active Medications Acetaminophen (Ofirmev Injection -) 1,000 mg IVPB Q6H PRN PRN Reason: PAIN LEVEL 6-10 Stop: 06/08/20 20:18 Last Admin: 06/08/20 09:37 Dose: 1,000 mg Documented by: Enoxaparin Sodium (Lovenox -) 40 mg SQ DAILY [facility] Last Admin: 06/08/20 09:36 Dose: 40 mg Documented by: Dextrose/Sodium Chloride (D5-1/2ns -) 1,000 mls @ 75 mls/hr IV ASDIR [facility] Last Admin: 06/07/20 22:00 Dose: 75 mls/hr Documented by: Pantoprazole Sodium (Protonix Iv) 40 mg IVPUSH DAILY [facility] Last Admin: 06/08/20 09:36 Dose: 40 mg Documented by: Phenol/Menthol (Chloraseptic -) 1 spray MM Q6HPO PRN PRN Reason: SORE THROAT Last Admin: 06/08/20 00:44 Dose: 1 spray Documented by: - Objective Vital Signs: Vital Signs Temperature 97.9 F 06/08/20 10:00 Pulse Rate 83 06/08/20 10:00 Respiratory Rate 18 06/08/20 10:00 Blood Pressure 127/79 06/08/20 10:00 O2 Sat by Pulse Oximetry (%) 97 06/08/20 06:00 Cardiovascular: Yes: S1, S2 Respiratory: Yes: Regular, CTA Bilaterally Gastrointestinal: Yes: Distention, Hypoactive Bowel Sounds Labs: CBC, BMP 06/08/20 06:59 06/08/20 06:59 INR, PTT INR 1.16 (0.82-1.09) 06/07/20 14:22 Problem List - Problems (1) SBO (small bowel obstruction) Assessment/Plan: - CTAP - High Grade SBO - Continue IVF - NGT low wall suction - Serial Abdominal Xrays - Monitor CBC, CMP - Monitor vitals - NPO Code(s): K56.609 - UNSP INTESTNL OBST, UNSP TO PARTIAL VERSUS COMPLETE OBST (2) History of repair of hiatal hernia Code(s): Z98.890 - OTHER SPECIFIED POSTPROCEDURAL STATES; Z87.19 - PERSONAL HISTORY OF OTHER DISEASES OF THE DIGESTIVE SYSTEM (3) Abdominal pain Code(s): R10.9 - UNSPECIFIED ABDOMINAL PAIN Qualifiers: Abdominal location: unspecified location Qualified Code(s): R10.9 - Unspecified abdominal pain (4) Severe obesity (BMI 35.0-35.9 with comorbidity) Assessment/Plan: - s/p Lap band, removal Code(s): E66.01 - MORBID (SEVERE) OBESITY DUE TO EXCESS CALORIES; Z68.35 - BODY MASS INDEX (BMI) 35.0-35.9, ADULT (5) Asthma Assessment/Plan: - stable - No acute flare Code(s): J45.909 - UNSPECIFIED ASTHMA, UNCOMPLICATED
--- NOTE | 2020-06-08 12:34 | PN ---
Progress Note (short form) - Note Progress Note: 06/08/2020 Afebrile today (Tmax 100.8 yesterday) VSS P-83 BP-127/79 Pt unchanged Still with colicky abdominal pain (slightly less) No N/V NGT- 1100 cc overnight P/E- Abd- + distention soft, tender on palpation in lower abdomen WBC-4.2 H/H-13.0/37.4 BUN/CR-35/0.7 CO2-27 Lactic Acid-1.2 Abd X-ray- ?fluid-filled bowel air-fluid levels noted in upper abdomen P- Cont NGT, NPO Daily abd x-rays Daily labs encourage OOB ambulate
[2020-06-08] MEDS: D5-1/2NS+10 MEQ KCL - 10 MEQ/1,000 ML INFUS.BAG IV SCH (13:02)
[2020-06-08] MEDS: KCL 10 MEQ IVPB 10 MEQ/100 ML INFUS.BAG IVPB SCH ×2 (13:02→14:17)
[2020-06-08] MEDS: HYDROmorphone HCl 2 MG/ML VIAL IVPB PRN ×2 (18:14→23:27)
[2020-06-08] MEDS: ONDANSETRON 4 MG/2 ML VIAL IVPUSH PRN (19:00)
[2020-06-09] MEDS: ONDANSETRON 4 MG/2 ML VIAL IVPUSH PRN ×3 (06:24→21:31)
[2020-06-09] MEDS: HYDROmorphone HCl 2 MG/ML VIAL IVPB PRN ×2 (06:27→12:31)
[2020-06-09 08:25] LABS: BASO % 0.5 % (0-2.0); EOS % 4.5 % (0-4.5); HEMATOCRIT 37.2 % (32.4-45.2); HEMOGLOBIN 12.8 GM/dl (10.7-15.3); LYMPH % 12.6 % (8-40); MCH 29.9 pg (25.7-33.7); MCHC 34.5 g/dl (32.0-36.0); MEAN CELL VOLUME 86.8 fl (80-96); MEAN PLT VOLUME 8.3 fl (7.5-11.1); MONO % 13.9 % (3.8-10.2); NEUT % 68.5 % (42.8-82.8); PLATELET COUNT 313 K/MM3 (134-434); RBC 4.29 M/mm3 (3.60-5.2); RDW 12.8 % (11.6-15.6); WHITE BLOOD COUNT 4.9 K/mm3 (4.0-10.8)
[2020-06-09 08:34] LABS: ALBUMIN 3.3 g/dl (3.4-5.0); BILIRUBIN,TOTAL 0.4 mg/dl (0.2-1); CREATININE 0.7 mg/dl (0.55-1.3); POTASSIUM 3.7 mmol/L (3.5-5.1); TOT PROT 6.1 g/dl (6.4-8.2)
[2020-06-09] MEDS: ENOXAPARIN NA (PORCINE) 40 MG/0.4 ML DISP.SYRIN SQ SCH (09:59)
[2020-06-09] MEDS: PANTOPRAZOLE SODIUM 40 MG VIAL IVPUSH SCH (10:00)
[2020-06-09] MEDS: CEFTRIAXONE 1 GM in DEXTROSE 5%-WATER - 50 ML IVPB SCH (10:02)
[2020-06-09] MEDS ORDERED: DEXTROSE 5%-WATER - 50 ML IVPB ONE (10:03)
[2020-06-09] MEDS ORDERED: cefTRIAXone SODIUM 1 GM VIAL ONE (10:03)
--- NOTE | 2020-06-09 11:52 | PN ---
Progress Note, Physician - Current Medication List Current Medications: Active Medications Enoxaparin Sodium (Lovenox -) 40 mg SQ DAILY [facility] Last Admin: 06/09/20 09:59 Dose: 40 mg Documented by: Hydromorphone HCl (Dilaudid Vial -) 0.5 mg IVPB Q6H PRN PRN Reason: PAIN LEVEL 6-10 Last Admin: 06/09/20 06:27 Dose: 0.5 mg Documented by: Potassium Chloride/Dextrose/Sod Cl (D5-1/2ns+10 Meq Kcl -) 10 meq in 1,000 mls @ 125 mls/hr IV ASDIR [facility] Last Admin: 06/08/20 13:02 Dose: 125 mls/hr Documented by: Ceftriaxone Sodium 1 gm/ (Dextrose) 50 mls @ 200 mls/hr IVPB DAILY [facility]; Protocol Last Admin: 06/09/20 10:02 Dose: 200 mls/hr Documented by: Ondansetron HCl (Zofran Injection) 4 mg IVPUSH Q4H PRN PRN Reason: NAUSEA AND/OR VOMITING Last Admin: 06/09/20 10:36 Dose: 4 mg Documented by: Pantoprazole Sodium (Protonix Iv) 40 mg IVPUSH DAILY [facility] Last Admin: 06/09/20 10:00 Dose: 40 mg Documented by: Phenol/Menthol (Chloraseptic -) 1 spray MM Q6HPO PRN PRN Reason: SORE THROAT Last Admin: 06/08/20 00:44 Dose: 1 spray Documented by: - Objective Vital Signs: Vital Signs Temperature 97.9 F 06/09/20 09:08 Pulse Rate 79 06/09/20 09:08 Respiratory Rate 17 06/09/20 09:08 Blood Pressure 133/79 06/09/20 09:08 O2 Sat by Pulse Oximetry (%) 96 06/09/20 09:08 Cardiovascular: Yes: S1, S2 Respiratory: Yes: Regular, CTA Bilaterally Gastrointestinal: Yes: Normal Bowel Sounds, Soft. No: Tenderness Labs: CBC, BMP 06/09/20 07:30 06/09/20 07:30 INR, PTT INR 1.16 (0.82-1.09) 06/07/20 14:22 Problem List - Problems (1) SBO (small bowel obstruction) Assessment/Plan: - CTAP - High Grade SBO - Continue IVF - NGT low wall suction - Serial Abdominal Xrays - Monitor CBC, CMP - Monitor vitals - NPO Code(s): K56.609 - UNSP INTESTNL OBST, UNSP TO PARTIAL VERSUS COMPLETE OBST (2) History of repair of hiatal hernia Assessment/Plan: per surgery Code(s): Z98.890 - OTHER SPECIFIED POSTPROCEDURAL STATES; Z87.19 - PERSONAL HISTORY OF OTHER DISEASES OF THE DIGESTIVE SYSTEM (3) Abdominal pain Code(s): R10.9 - UNSPECIFIED ABDOMINAL PAIN Qualifiers: Abdominal location: unspecified location Qualified Code(s): R10.9 - Unspecified abdominal pain (4) Severe obesity (BMI 35.0-35.9 with comorbidity) Assessment/Plan: - s/p Lap band, removal Code(s): E66.01 - MORBID (SEVERE) OBESITY DUE TO EXCESS CALORIES; Z68.35 - BODY MASS INDEX (BMI) 35.0-35.9, ADULT (5) Asthma Assessment/Plan: - stable - No acute flare Code(s): J45.909 - UNSPECIFIED ASTHMA, UNCOMPLICATED
[2020-06-09] MEDS: D5-1/2NS+10 MEQ KCL - 10 MEQ/1,000 ML INFUS.BAG IV SCH (12:30)
--- NOTE | 2020-06-09 13:37 | PN ---
Progress Note (short form) - Note Progress Note: 06/09/2020 Medicine coverage note appreciated Afebrile; VSS Pt OOB in chair for 3 hours States still with abdominal pain/spasms (although less than previously) Still with nausea No flatus P/E- Abd- still distended, tender on palpation in midline below umbilicus and LLQ WBC-4.9 H/H-12.8/37.2 BUN/CR-29/0.7 K+-3.7 Anion Gap-10 Abd x-ray- still air-fluid levels in upper abdomen SB distention mostly unchanged P- Cont NPO, NGT Encourage OOB Daily labs, x-rays
[2020-06-09] MEDS ORDERED: KCL 10 MEQ IVPB 10 MEQ/100 ML INFUS.BAG IVPB SCH (13:45)
[2020-06-09] MEDS: HYDROmorphone HCL CARPU-JECT 1 MG/1 ML DISP.SYRIN IVPB PRN ×2 (16:45→21:29)
[2020-06-09] MEDS ORDERED: LOCK ITEM NR ONE (19:11)
[2020-06-10] MEDS: HYDROmorphone HCL CARPU-JECT 1 MG/1 ML DISP.SYRIN IVPB PRN ×6 (01:09→21:36)
[2020-06-10] MEDS: ONDANSETRON 4 MG/2 ML VIAL IVPUSH PRN ×4 (08:05→21:37)
[2020-06-10 08:24] LABS: HEMATOCRIT 36.3 % (32.4-45.2); HEMOGLOBIN 12.3 GM/dl (10.7-15.3); MCH 29.3 pg (25.7-33.7); MEAN CELL VOLUME 86.2 fl (80-96); MEAN PLT VOLUME 8.4 fl (7.5-11.1); PLATELET COUNT 308 K/MM3 (134-434); RBC 4.21 M/mm3 (3.60-5.2); RDW 12.8 % (11.6-15.6); WHITE BLOOD COUNT 4.9 K/mm3 (4.0-10.8)
[2020-06-10 08:44] LABS: BILIRUBIN,TOTAL 0.2 mg/dl (0.2-1); CALCIUM 8.6 mg/dl (8.5-10); CREATININE 0.7 mg/dl (0.55-1.3); POTASSIUM 3.8 mmol/L (3.5-5.1); TOT PROT 5.6 g/dl (6.4-8.2)
[2020-06-10] MEDS ORDERED: cefTRIAXone SODIUM 1 GM VIAL ONE (09:50)
[2020-06-10] MEDS ORDERED: DEXTROSE 5%-WATER - 50 ML IVPB ONE (09:51)
[2020-06-10] MEDS: CEFTRIAXONE 1 GM in DEXTROSE 5%-WATER - 50 ML IVPB SCH (09:56)
[2020-06-10] MEDS: ENOXAPARIN NA (PORCINE) 40 MG/0.4 ML DISP.SYRIN SQ SCH (09:56)
[2020-06-10] MEDS: PANTOPRAZOLE SODIUM 40 MG VIAL IVPUSH SCH (09:56)
--- NOTE | 2020-06-10 10:43 | PN ---
Progress Note, Physician - Current Medication List Current Medications: Active Medications Enoxaparin Sodium (Lovenox -) 40 mg SQ DAILY [facility] Last Admin: 06/10/20 09:56 Dose: 40 mg Documented by: Hydromorphone HCl (Dilaudid Injection -) 0.5 mg IVPB Q4H PRN PRN Reason: PAIN LEVEL 6-10 Last Admin: 06/10/20 09:26 Dose: 0.5 mg Documented by: Potassium Chloride/Dextrose/Sod Cl (D5-1/2ns+10 Meq Kcl -) 10 meq in 1,000 mls @ 125 mls/hr IV ASDIR [facility] Last Admin: 06/09/20 12:30 Dose: 125 mls/hr Documented by: Ceftriaxone Sodium 1 gm/ (Dextrose) 50 mls @ 200 mls/hr IVPB DAILY [facility]; Protocol Last Admin: 06/10/20 09:56 Dose: 200 mls/hr Documented by: Ondansetron HCl (Zofran Injection) 4 mg IVPUSH Q4H PRN PRN Reason: NAUSEA AND/OR VOMITING Last Admin: 06/10/20 08:05 Dose: 4 mg Documented by: Pantoprazole Sodium (Protonix Iv) 40 mg IVPUSH DAILY [facility] Last Admin: 06/10/20 09:56 Dose: 40 mg Documented by: Phenol/Menthol (Chloraseptic -) 1 spray MM Q6HPO PRN PRN Reason: SORE THROAT Last Admin: 06/08/20 00:44 Dose: 1 spray Documented by: - Objective Vital Signs: Vital Signs Temperature 99.1 F 06/10/20 09:07 Pulse Rate 87 06/10/20 09:07 Respiratory Rate 18 06/10/20 09:07 Blood Pressure 136/74 06/10/20 09:07 O2 Sat by Pulse Oximetry (%) 96 06/10/20 09:07 Cardiovascular: Yes: Regular Rate and Rhythm Respiratory: Yes: Regular, CTA Bilaterally Gastrointestinal: Yes: Soft, Hypoactive Bowel Sounds Labs: CBC, BMP 06/10/20 08:16 06/10/20 06:00 INR, PTT INR 1.16 (0.82-1.09) 06/07/20 14:22 Problem List - Problems (1) SBO (small bowel obstruction) Assessment/Plan: - CTAP - High Grade SBO - Continue IVF - NGT low wall suction - Serial Abdominal Xrays - Monitor CBC, CMP - Monitor vitals - NPO Code(s): K56.609 - UNSP INTESTNL OBST, UNSP TO PARTIAL VERSUS COMPLETE OBST (2) History of repair of hiatal hernia Assessment/Plan: per surgery Code(s): Z98.890 - OTHER SPECIFIED POSTPROCEDURAL STATES; Z87.19 - PERSONAL HISTORY OF OTHER DISEASES OF THE DIGESTIVE SYSTEM (3) Abdominal pain Code(s): R10.9 - UNSPECIFIED ABDOMINAL PAIN Qualifiers: Abdominal location: unspecified location Qualified Code(s): R10.9 - Unspecified abdominal pain (4) Severe obesity (BMI 35.0-35.9 with comorbidity) Assessment/Plan: - s/p Lap band, removal Code(s): E66.01 - MORBID (SEVERE) OBESITY DUE TO EXCESS CALORIES; Z68.35 - BODY MASS INDEX (BMI) 35.0-35.9, ADULT (5) Asthma Assessment/Plan: - stable - No acute flare Code(s): J45.909 - UNSPECIFIED ASTHMA, UNCOMPLICATED
[2020-06-10] MEDS: D5-1/2NS+10 MEQ KCL - 10 MEQ/1,000 ML INFUS.BAG IV SCH (12:51)
--- NOTE | 2020-06-10 13:53 | PN ---
Progress Note (short form) - Note Progress Note: 06/10/2020 Pt stable No major change Abdominal cramping slightly less No vomiting, nausea unchanged NGT in place- 300 cc last 24 hours (decreased compared to previously) P/E- Abd- binder in place soft, tender on palpation in lower abdomen in midline and LLQ WBC-4.9 H/H-12.3/36.3 BUN/CR-27/0.7 K+-3.8 Abd x-rays- no major change noted less distention, less air-fluid levels P- Cont NPO, NGT Encourage OOB to chair, ambulate as tolerated Daily abdominal x-rays Check daily labs
[2020-06-11] MEDS: HYDROmorphone HCL CARPU-JECT 1 MG/1 ML DISP.SYRIN IVPB PRN ×2 (01:21→09:39)
[2020-06-11] MEDS: ONDANSETRON 4 MG/2 ML VIAL IVPUSH PRN ×4 (01:21→22:16)
[2020-06-11] MEDS: ENOXAPARIN NA (PORCINE) 40 MG/0.4 ML DISP.SYRIN SQ SCH (09:40)
[2020-06-11] MEDS: PANTOPRAZOLE SODIUM 40 MG VIAL IVPUSH SCH (09:40)
[2020-06-11 10:46] LABS: HEMATOCRIT 36.3 % (32.4-45.2); HEMOGLOBIN 12.4 GM/dl (10.7-15.3); MCH 29.4 pg (25.7-33.7); MCHC 34.2 g/dl (32.0-36.0); MEAN CELL VOLUME 85.8 fl (80-96); MEAN PLT VOLUME 7.7 fl (7.5-11.1); PLATELET COUNT 276 K/MM3 (134-434); RBC 4.23 M/mm3 (3.60-5.2); RDW 12.1 % (11.6-15.6); WHITE BLOOD COUNT 5.1 K/mm3 (4.0-10.8)
[2020-06-11 11:05] LABS: ALBUMIN 2.9 g/dl (3.4-5.0); BILIRUBIN,TOTAL 0.4 mg/dl (0.2-1); CALCIUM 8.6 mg/dl (8.5-10); CREATININE 0.6 mg/dl (0.55-1.3); POTASSIUM 3.7 mmol/L (3.5-5.1); TOT PROT 5.5 g/dl (6.4-8.2)
[2020-06-11] MEDS: CEFTRIAXONE 1 GM in DEXTROSE 5%-WATER - 50 ML IVPB SCH (11:30)
[2020-06-11] MEDS ORDERED: DEXTROSE 5%-WATER - 50 ML IVPB ONE (14:11)
[2020-06-11] MEDS ORDERED: cefTRIAXone SODIUM 1 GM VIAL ONE (14:11)
--- NOTE | 2020-06-11 15:16 | PN ---
Progress Note (short form) - Note Progress Note: 06/11/2020 Afebrile; VSS No changes noted NGT-600cc in 24 hours (no change) P/E- Abd- lower abdomen mildly tender on palpation Ext- no swelling, no edema WBC-5.1 H/H-12.4/36.3 BUN/CR-14/0.6 P- CT scan (abdomen)- Awaiting CT scan repair, re-ordered for tomorrow check labs in AM Cont NGT, NPO Continue DVT prophylaxis
[2020-06-11] MEDS: HYDROmorphone HCl 2 MG/ML VIAL IVPB PRN ×2 (16:57→22:15)
--- NOTE | 2020-06-11 18:09 | PN ---
Progress Note, Physician - Current Medication List Current Medications: Active Medications Enoxaparin Sodium (Lovenox -) 40 mg SQ DAILY [facility] Last Admin: 06/11/20 09:40 Dose: 40 mg Documented by: Hydromorphone HCl (Dilaudid Vial -) 0.5 mg IVPB Q3H PRN PRN Reason: PAIN LEVEL 6-10 Last Admin: 06/11/20 16:57 Dose: 0.5 mg Documented by: Ceftriaxone Sodium 1 gm/ (Dextrose) 50 mls @ 200 mls/hr IVPB DAILY [facility]; Pr otocol Last Admin: 06/11/20 11:30 Dose: 200 mls/hr Documented by: Amino Acids (Clinimix -) 1,000 mls @ 84 mls/hr IV Q12H [facility] Potassium Chloride/Dextrose/Sod Cl (D5-1/2ns+20 Meq Kcl -) 20 meq in 1,000 mls @ 42 mls/hr IV ASDIR [facility] Ondansetron HCl (Zofran Injection) 4 mg IVPUSH Q4H PRN PRN Reason: NAUSEA AND/OR VOMITING Last Admin: 06/11/20 16:58 Dose: 4 mg Documented by: Pantoprazole Sodium (Protonix Iv) 40 mg IVPUSH DAILY [facility] Last Admin: 06/11/20 09:40 Dose: 40 mg Documented by: Phenol/Menthol (Chloraseptic -) 1 spray MM Q6HPO PRN PRN Reason: SORE THROAT Last Admin: 06/08/20 00:44 Dose: 1 spray Documented by: - Objective Vital Signs: Vital Signs Temperature 97.7 F 06/11/20 14:30 Pulse Rate 93 H 06/11/20 14:30 Respiratory Rate 47 H 06/11/20 14:30 Blood Pressure 148/97 06/11/20 14:30 O2 Sat by Pulse Oximetry (%) 100 06/11/20 14:33 Cardiovascular: Yes: S1, S2 Respiratory: Yes: Regular, CTA Bilaterally Gastrointestinal: Yes: Soft, Hypoactive Bowel Sounds Labs: CBC, BMP 06/11/20 10:30 06/11/20 10:30 INR, PTT INR 1.16 (0.82-1.09) 06/07/20 14:22 Problem List - Problems (1) SBO (small bowel obstruction) Assessment/Plan: - CTAP - High Grade SBO--Xrays noted--follow up CT in am - Continue IVF - NGT low wall suction - Serial Abdominal Xrays - Monitor CBC, CMP - Monitor vitals - NPO -On Clinimex Code(s): K56.609 - UNSP INTESTNL OBST, UNSP TO PARTIAL VERSUS COMPLETE OBST (2) History of repair of hiatal hernia Assessment/Plan: per surgery Code(s): Z98.890 - OTHER SPECIFIED POSTPROCEDURAL STATES; Z87.19 - PERSONAL HISTORY OF OTHER DISEASES OF THE DIGESTIVE SYSTEM (3) Abdominal pain Code(s): R10.9 - UNSPECIFIED ABDOMINAL PAIN Qualifiers: Abdominal location: unspecified location Qualified Code(s): R10.9 - Unspecified abdominal pain (4) Severe obesity (BMI 35.0-35.9 with comorbidity) Assessment/Plan: - s/p Lap band, removal Code(s): E66.01 - MORBID (SEVERE) OBESITY DUE TO EXCESS CALORIES; Z68.35 - BODY MASS INDEX (BMI) 35.0-35.9, ADULT (5) Asthma Assessment/Plan: - stable - No acute flare Code(s): J45.909 - UNSPECIFIED ASTHMA, UNCOMPLICATED
[2020-06-11] MEDS: AMINO ACIDS 4.25%/D5W 1,000 ML IV SCH (19:17)
[2020-06-11] MEDS: D5-1/2NS+20 MEQ KCL - 20 MEQ/1,000 ML INFUS.BAG IV SCH (19:19)
[2020-06-12] MEDS: AMINO ACIDS 4.25%/D5W 1,000 ML IV SCH ×2 (03:40→16:16)
[2020-06-12] MEDS: ONDANSETRON 4 MG/2 ML VIAL IVPUSH PRN ×2 (06:41→10:00)
[2020-06-12] MEDS: HYDROmorphone HCl 2 MG/ML VIAL IVPB PRN ×2 (06:41→10:01)
--- NOTE | 2020-06-12 08:46 | PN ---
Progress Note, Physician - Current Medication List Current Medications: Active Medications Enoxaparin Sodium (Lovenox -) 40 mg SQ DAILY [facility] Last Admin: 06/11/20 09:40 Dose: 40 mg Documented by: Hydromorphone HCl (Dilaudid Vial -) 0.5 mg IVPB Q3H PRN PRN Reason: PAIN LEVEL 6-10 Last Admin: 06/12/20 06:41 Dose: 0.5 mg Documented by: Ceftriaxone Sodium 1 gm/ (Dextrose) 50 mls @ 200 mls/hr IVPB DAILY [facility]; Pr otocol Last Admin: 06/11/20 11:30 Dose: 200 mls/hr Documented by: Amino Acids (Clinimix -) 1,000 mls @ 84 mls/hr IV Q12H [facility] Last Admin: 06/12/20 03:40 Dose: 84 mls/hr Documented by: Potassium Chloride/Dextrose/Sod Cl (D5-1/2ns+20 Meq Kcl -) 20 meq in 1,000 mls @ 42 mls/hr IV ASDIR [facility] Last Admin: 06/11/20 19:19 Dose: 42 mls/hr Documented by: Ondansetron HCl (Zofran Injection) 4 mg IVPUSH Q4H PRN PRN Reason: NAUSEA AND/OR VOMITING Last Admin: 06/12/20 06:41 Dose: 4 mg Documented by: Pantoprazole Sodium (Protonix Iv) 40 mg IVPUSH DAILY [facility] Last Admin: 06/11/20 09:40 Dose: 40 mg Documented by: Phenol/Menthol (Chloraseptic -) 1 spray MM Q6HPO PRN PRN Reason: SORE THROAT Last Admin: 06/08/20 00:44 Dose: 1 spray Documented by: - Objective Vital Signs: Vital Signs Temperature 97.7 F 06/12/20 06:39 Pulse Rate 79 06/12/20 06:39 Respiratory Rate 18 06/12/20 06:39 Blood Pressure 140/80 06/12/20 06:39 O2 Sat by Pulse Oximetry (%) 98 06/12/20 06:39 Cardiovascular: Yes: Regular Rate and Rhythm Respiratory: Yes: Regular, CTA Bilaterally Gastrointestinal: Yes: Soft, Hypoactive Bowel Sounds Labs: CBC, BMP 06/11/20 10:30 06/11/20 10:30 INR, PTT INR 1.16 (0.82-1.09) 06/07/20 14:22 Problem List - Problems (1) SBO (small bowel obstruction) Assessment/Plan: - CTAP - High Grade SBO--Xrays noted--follow up CT - Continue IVF - NGT low wall suction - Serial Abdominal Xrays - Monitor CBC, CMP - Monitor vitals - NPO -On Clinimex Code(s): K56.609 - UNSP INTESTNL OBST, UNSP TO PARTIAL VERSUS COMPLETE OBST (2) History of repair of hiatal hernia Assessment/Plan: per surgery Code(s): Z98.890 - OTHER SPECIFIED POSTPROCEDURAL STATES; Z87.19 - PERSONAL HISTORY OF OTHER DISEASES OF THE DIGESTIVE SYSTEM (3) Abdominal pain Code(s): R10.9 - UNSPECIFIED ABDOMINAL PAIN Qualifiers: Abdominal location: unspecified location Qualified Code(s): R10.9 - Unspecified abdominal pain (4) Severe obesity (BMI 35.0-35.9 with comorbidity) Assessment/Plan: - s/p Lap band, removal Code(s): E66.01 - MORBID (SEVERE) OBESITY DUE TO EXCESS CALORIES; Z68.35 - BODY MASS INDEX (BMI) 35.0-35.9, ADULT (5) Asthma Assessment/Plan: - stable - No acute flare Code(s): J45.909 - UNSPECIFIED ASTHMA, UNCOMPLICATED
[2020-06-12] MEDS ORDERED: DEXTROSE 5%-WATER - 50 ML IVPB ONE (09:52)
[2020-06-12] MEDS ORDERED: cefTRIAXone SODIUM 1 GM VIAL ONE (09:52)
[2020-06-12] MEDS: CEFTRIAXONE 1 GM in DEXTROSE 5%-WATER - 50 ML IVPB SCH (09:59)
[2020-06-12] MEDS: PANTOPRAZOLE SODIUM 40 MG VIAL IVPUSH SCH (10:00)
[2020-06-12] MEDS: ENOXAPARIN NA (PORCINE) 40 MG/0.4 ML DISP.SYRIN SQ SCH (10:00)
[2020-06-12] MEDS ORDERED: HYDROmorphone HCL/PF 1 MG/ML VIAL IVPB PRN (10:12)
[2020-06-12] MEDS: HYDROmorphone HCL 0.5 MG/0.5 ML SYRINGE IVPB PRN ×4 (12:53→22:21)
[2020-06-12] MEDS: D5-1/2NS+20 MEQ KCL - 20 MEQ/1,000 ML INFUS.BAG IV SCH (16:17)
--- NOTE | 2020-06-12 17:23 | PN ---
Progress Note (short form) - Note Progress Note: Afebrile; VSS Pt oob in chair Abdominal pain persists, but slightly less P/E- Abd- mild distention, soft mild tenderness on palpation in lower midline CT scan- mildly dilated SB loops official reading is partial small bowel obstruction NGT- 1300 cc in 24 hours (increased) P- Check labs tomorrow Encourage OOB Cont NPO, NGT, Clinimix
[2020-06-13] MEDS: HYDROmorphone HCL 0.5 MG/0.5 ML SYRINGE IVPB PRN ×3 (02:49→22:16)
[2020-06-13] MEDS: AMINO ACIDS 4.25%/D5W 1,000 ML IV SCH ×2 (03:28→15:27)
[2020-06-13 08:34] LABS: HEMATOCRIT 35.2 % (32.4-45.2); HEMOGLOBIN 11.8 GM/dl (10.7-15.3); MCH 28.5 pg (25.7-33.7); MCHC 33.5 g/dl (32.0-36.0); MEAN CELL VOLUME 85.3 fl (80-96); PLATELET COUNT 304 K/MM3 (134-434); RBC 4.12 M/mm3 (3.60-5.2); RDW 12.6 % (11.6-15.6); WHITE BLOOD COUNT 5.1 K/mm3 (4.0-10.8)
[2020-06-13 08:35] LABS: ALBUMIN 2.7 g/dl (3.4-5.0); BILIRUBIN,TOTAL 0.2 mg/dl (0.2-1); CALCIUM 8.8 mg/dl (8.5-10); CREATININE 0.6 mg/dl (0.55-1.3); TOT PROT 5.5 g/dl (6.4-8.2)
[2020-06-13 08:45] LABS: POTASSIUM 2.9 mmol/L (3.5-5.1)
[2020-06-13] MEDS ORDERED: cefTRIAXone SODIUM 1 GM VIAL ONE (09:47)
[2020-06-13] MEDS ORDERED: DEXTROSE 5%-WATER - 50 ML IVPB ONE (09:47)
[2020-06-13] MEDS: KCL 10 MEQ IVPB 10 MEQ/100 ML INFUS.BAG IVPB SCH ×5 (09:55→21:21)
[2020-06-13] MEDS: CEFTRIAXONE 1 GM in DEXTROSE 5%-WATER - 50 ML IVPB SCH (09:55)
[2020-06-13] MEDS: ENOXAPARIN NA (PORCINE) 40 MG/0.4 ML DISP.SYRIN SQ SCH (09:55)
[2020-06-13] MEDS: PANTOPRAZOLE SODIUM 40 MG VIAL IVPUSH SCH (09:56)
[2020-06-13] MEDS: D5-1/2NS+20 MEQ KCL - 20 MEQ/1,000 ML INFUS.BAG IV SCH (15:27)
[2020-06-13 18:53] LABS: CALCIUM 8.6 mg/dl (8.5-10); CREATININE 0.6 mg/dl (0.55-1.3); MAGNESIUM 1.3 mg/dL (1.8-2.4); POTASSIUM 3.1 mmol/L (3.5-5.1)
--- NOTE | 2020-06-13 19:21 | PN ---
Progress Note, Physician - Current Medication List Current Medications: Active Medications Enoxaparin Sodium (Lovenox -) 40 mg SQ DAILY [facility] Last Admin: 06/13/20 09:55 Dose: 40 mg Documented by: Hydromorphone HCl (Dilaudid) 0.5 mg IVPB Q3H PRN PRN Reason: PAIN LEVEL 6-10 Last Admin: 06/13/20 13:44 Dose: 0.5 mg Documented by: Ceftriaxone Sodium 1 gm/ (Dextrose) 50 mls @ 200 mls/hr IVPB DAILY [facility]; Protocol Last Admin: 06/13/20 09:55 Dose: 200 mls/hr Documented by: Amino Acids (Clinimix -) 1,000 mls @ 84 mls/hr IV Q12H [facility] Last Admin: 06/13/20 15:27 Dose: 84 mls/hr Documented by: Potassium Chloride/Dextrose/Sod Cl (D5-1/2ns+20 Meq Kcl -) 20 meq in 1,000 mls @ 42 mls/hr IV ASDIR [facility] Last Admin: 06/13/20 15:27 Dose: 42 mls/hr Documented by: Ondansetron HCl (Zofran Injection) 4 mg IVPUSH Q4H PRN PRN Reason: NAUSEA AND/OR VOMITING Last Admin: 06/12/20 10:00 Dose: 4 mg Documented by: Pantoprazole Sodium (Protonix Iv) 40 mg IVPUSH DAILY [facility] Last Admin: 06/13/20 09:56 Dose: 40 mg Documented by: Phenol/Menthol (Chloraseptic -) 1 spray MM Q6HPO PRN PRN Reason: SORE THROAT Last Admin: 06/08/20 00:44 Dose: 1 spray Documented by: - Objective Vital Signs: Vital Signs Temperature 98.4 F 06/13/20 15:00 Pulse Rate 79 06/13/20 15:00 Respiratory Rate 19 06/13/20 15:00 Blood Pressure 134/75 06/13/20 15:00 O2 Sat by Pulse Oximetry (%) 98 06/13/20 15:00 Cardiovascular: Yes: S1, S2 Respiratory: Yes: Regular, CTA Bilaterally Gastrointestinal: Yes: Soft, Hypoactive Bowel Sounds Labs: CBC, BMP 06/13/20 07:13 06/13/20 18:25 INR, PTT INR 1.16 (0.82-1.09) 06/07/20 14:22 Problem List - Problems (1) SBO (small bowel obstruction) Assessment/Plan: - CTAP - High Grade SBO--Xrays noted--follow up CT - Continue IVF - NGT low wall suction - Serial Abdominal Xrays - Monitor CBC, CMP - Monitor vitals - NPO -On Clinimex Code(s): K56.609 - UNSP INTESTNL OBST, UNSP TO PARTIAL VERSUS COMPLETE OBST (2) History of repair of hiatal hernia Assessment/Plan: per surgery Code(s): Z98.890 - OTHER SPECIFIED POSTPROCEDURAL STATES; Z87.19 - PERSONAL HISTORY OF OTHER DISEASES OF THE DIGESTIVE SYSTEM (3) Abdominal pain Code(s): R10.9 - UNSPECIFIED ABDOMINAL PAIN Qualifiers: Abdominal location: unspecified location Qualified Code(s): R10.9 - Unspecified abdominal pain (4) Severe obesity (BMI 35.0-35.9 with comorbidity) Assessment/Plan: - s/p Lap band, removal Code(s): E66.01 - MORBID (SEVERE) OBESITY DUE TO EXCESS CALORIES; Z68.35 - BODY MASS INDEX (BMI) 35.0-35.9, ADULT (5) Asthma Assessment/Plan: - stable - No acute flare Code(s): J45.909 - UNSPECIFIED ASTHMA, UNCOMPLICATED (6) Hypokalemia Assessment/Plan: replace and monitor Code(s): E87.6 - HYPOKALEMIA
[2020-06-13] MEDS ORDERED: D5-1/2NS+30 MEQ KCL - 30 MEQ/1,000 ML INFUS.BAG IV SCH (19:30)
[2020-06-13] MEDS: ONDANSETRON 4 MG/2 ML VIAL IVPUSH PRN (21:15)
[2020-06-13] MEDS ORDERED: DEXTROSE 5%-0.45% SALINE 1,000 ML with POTASSIUM CHLORIDE 30 MEQ IVPB SCH (23:15)
[2020-06-14] MEDS: AMINO ACIDS 4.25%/D5W 1,000 ML IV SCH (03:26)
[2020-06-14 08:10] LABS: ALBUMIN 2.8 g/dl (3.4-5.0); BILIRUBIN,TOTAL 0.5 mg/dl (0.2-1); CALCIUM 8.8 mg/dl (8.5-10); CREATININE 0.5 mg/dl (0.55-1.3); POTASSIUM 3.1 mmol/L (3.5-5.1); TOT PROT 5.6 g/dl (6.4-8.2)
[2020-06-14 08:19] LABS: BASO % 0.5 % (0-2.0); EOS % 10.1 % (0-4.5); HEMATOCRIT 34.4 % (32.4-45.2); HEMOGLOBIN 12.1 GM/dl (10.7-15.3); MCH 30.1 pg (25.7-33.7); MEAN CELL VOLUME 85.9 fl (80-96); MEAN PLT VOLUME 8.1 fl (7.5-11.1); MONO % 10.4 % (3.8-10.2); PLATELET COUNT 330 K/MM3 (134-434); RDW 12.7 % (11.6-15.6); WHITE BLOOD COUNT 6.4 K/mm3 (4.0-10.8)
[2020-06-14] MEDS ORDERED: cefTRIAXone SODIUM 1 GM VIAL ONE (09:37)
[2020-06-14] MEDS ORDERED: DEXTROSE 5%-WATER - 50 ML IVPB ONE (09:38)
[2020-06-14] MEDS: ENOXAPARIN NA (PORCINE) 40 MG/0.4 ML DISP.SYRIN SQ SCH (09:47)
[2020-06-14] MEDS: PANTOPRAZOLE SODIUM 40 MG VIAL IVPUSH SCH (09:47)
[2020-06-14] MEDS: CEFTRIAXONE 1 GM in DEXTROSE 5%-WATER - 50 ML IVPB SCH (09:47)
[2020-06-14] MEDS ORDERED: MAGNESIUM SULF 50% (8.12 MEQ/2 ML-1 GM VIAL) IVPB ONE (10:04)
[2020-06-14] MEDS ORDERED: MAGNESIUM SULFATE IN WATER 2 GM/50 ML IVPB IVPB ONE (10:15)
[2020-06-14 10:37] LABS: MAGNESIUM 1.3 mg/dL (1.8-2.4)
[2020-06-14] MEDS: KCL 10 MEQ IVPB 10 MEQ/100 ML INFUS.BAG IVPB SCH ×3 (11:36→22:00)
--- NOTE | 2020-06-14 11:59 | PN ---
Progress Note, Physician - Current Medication List Current Medications: Active Medications Enoxaparin Sodium (Lovenox -) 40 mg SQ DAILY [facility] Last Admin: 06/14/20 09:47 Dose: 40 mg Documented by: Hydromorphone HCl (Dilaudid) 0.5 mg IVPB Q3H PRN PRN Reason: PAIN LEVEL 6-10 Last Admin: 06/13/20 22:16 Dose: 0.5 mg Documented by: Ceftriaxone Sodium 1 gm/ (Dextrose) 50 mls @ 200 mls/hr IVPB DAILY [facility]; Protocol Last Admin: 06/14/20 09:47 Dose: 200 mls/hr Documented by: Amino Acids (Clinimix -) 1,000 mls @ 84 mls/hr IV Q12H [facility] Last Admin: 06/14/20 03:26 Dose: 84 mls/hr Documented by: Potassium Chloride 30 meq/ (Dextrose/Sodium Chloride) 1,015 mls @ 42 mls/hr IVPB ASDIR [facility] Last Admin: 06/14/20 00:16 Dose: 42 mls/hr Documented by: Potassium Chloride (Potassium Chloride 10 Meq Premix Ivpb -) 10 meq in 100 mls @ 100 mls/hr IVPB Q60M [facility] Stop: 06/14/20 13:14 Last Admin: 06/14/20 11:36 Dose: 100 mls/hr Documented by: Ondansetron HCl (Zofran Injection) 4 mg IVPUSH Q4H PRN PRN Reason: NAUSEA AND/OR VOMITING Last Admin: 06/13/20 21:15 Dose: 4 mg Documented by: Pantoprazole Sodium (Protonix Iv) 40 mg IVPUSH DAILY [facility] Last Admin: 06/14/20 09:47 Dose: 40 mg Documented by: Phenol/Menthol (Chloraseptic -) 1 spray MM Q6HPO PRN PRN Reason: SORE THROAT Last Admin: 06/08/20 00:44 Dose: 1 spray Documented by: - Objective Vital Signs: Vital Signs Temperature 99.2 F 06/14/20 09:25 Pulse Rate 87 06/14/20 09:25 Respiratory Rate 18 06/14/20 09:25 Blood Pressure 148/82 06/14/20 09:25 O2 Sat by Pulse Oximetry (%) 100 06/14/20 09:25 Cardiovascular: Yes: S1, S2 Respiratory: Yes: Regular, CTA Bilaterally Gastrointestinal: Yes: Normal Bowel Sounds, Soft. No: Tenderness Labs: CBC, BMP 06/14/20 06:59 06/14/20 06:59 INR, PTT INR 1.16 (0.82-1.09) 06/07/20 14:22 Problem List - Problems (1) SBO (small bowel obstruction) Assessment/Plan: - CTAP - High Grade SBO--Xrays noted--follow up CT noted--FUA - Continue IVF - NGT low wall suction - Serial Abdominal Xrays - Monitor CBC, CMP - Monitor vitals - NPO -On Clinimex Code(s): K56.609 - UNSP INTESTNL OBST, UNSP TO PARTIAL VERSUS COMPLETE OBST (2) History of repair of hiatal hernia Assessment/Plan: per surgery Code(s): Z98.890 - OTHER SPECIFIED POSTPROCEDURAL STATES; Z87.19 - PERSONAL HISTORY OF OTHER DISEASES OF THE DIGESTIVE SYSTEM (3) Abdominal pain Code(s): R10.9 - UNSPECIFIED ABDOMINAL PAIN Qualifiers: Abdominal location: unspecified location Qualified Code(s): R10.9 - Unspecified abdominal pain (4) Severe obesity (BMI 35.0-35.9 with comorbidity) Assessment/Plan: - s/p Lap band, removal Code(s): E66.01 - MORBID (SEVERE) OBESITY DUE TO EXCESS CALORIES; Z68.35 - BODY MASS INDEX (BMI) 35.0-35.9, ADULT (5) Asthma Assessment/Plan: - stable - No acute flare Code(s): J45.909 - UNSPECIFIED ASTHMA, UNCOMPLICATED (6) Hypokalemia Assessment/Plan: replace and monitor Code(s): E87.6 - HYPOKALEMIA
--- NOTE | 2020-06-14 13:26 | PN ---
Progress Note (short form) - Note Progress Note: Dr Fountain note, management appreciated Pt doing somewhat better Less abdominal pain Had 2 BM's this AM with flatus Requiring less pain meds Walking ok, but feels weak (no PO intake for 1 week) OOB more P/E- Abd- slightly less distended less tender on palpation NGT- 700 cc/24 hours (today clear, no longer bile) WBC-6.4 H/H-12.1/34.4 K+-3.1 Mg-1.3 P- Cont NGT, NPO Cont Clinimix Replace K+, Mg CT scan tomorrow
[2020-06-14] MEDS: POTASSIUM CHLORIDE 20 MEQ in AMINO ACIDS 4.25%/D5W 1,000 ML IVPB SCH (15:22)
[2020-06-14] MEDS: MULTIVIT INJ. ADULT COMBO WITH VIT K 1 COMBO 10 ML VIAL IV SCH (15:29)
[2020-06-14 20:45] LABS: BILIRUBIN,TOTAL 0.7 mg/dl (0.2-1); CALCIUM 8.5 mg/dl (8.5-10); CREATININE 0.5 mg/dl (0.55-1.3); MAGNESIUM 1.9 mg/dL (1.8-2.4); TOT PROT 5.8 g/dl (6.4-8.2)
[2020-06-14 20:48] LABS: POTASSIUM 2.7 mmol/L (3.5-5.1)
[2020-06-14] MEDS: HYDROmorphone HCL 0.5 MG/0.5 ML SYRINGE IVPB PRN (22:00)
[2020-06-15] MEDS: KCL 10 MEQ IVPB 10 MEQ/100 ML INFUS.BAG IVPB SCH ×3 (02:13→14:04)
[2020-06-15] MEDS: POTASSIUM CHLORIDE 20 MEQ in AMINO ACIDS 4.25%/D5W 1,000 ML IVPB SCH ×2 (04:00→16:49)
[2020-06-15 07:47] LABS: ALBUMIN 2.7 g/dl (3.4-5.0); BILIRUBIN,TOTAL 0.4 mg/dl (0.2-1); CALCIUM 8.5 mg/dl (8.5-10); CREATININE 0.6 mg/dl (0.55-1.3); POTASSIUM 3.4 mmol/L (3.5-5.1); TOT PROT 5.5 g/dl (6.4-8.2)
--- NOTE | 2020-06-15 08:55 | PN ---
Progress Note, Physician - Current Medication List Current Medications: Active Medications Enoxaparin Sodium (Lovenox -) 40 mg SQ DAILY [facility] Last Admin: 06/14/20 09:47 Dose: 40 mg Documented by: Hydromorphone HCl (Dilaudid) 0.5 mg IVPB Q3H PRN PRN Reason: PAIN LEVEL 6-10 Last Admin: 06/14/20 22:00 Dose: 0.5 mg Documented by: Ceftriaxone Sodium 1 gm/ (Dextrose) 50 mls @ 200 mls/hr IVPB DAILY [facility]; Protocol Last Admin: 06/14/20 09:47 Dose: 200 mls/hr Documented by: Potassium Chloride 20 meq/ (Amino Acids) 1,010 mls @ 84 mls/hr IVPB Q12H [facility] Last Admin: 06/15/20 04:00 Dose: 84 mls/hr Documented by: Multivitamins/Minerals (Infuvite Adult -) 10 ml IV DAILY@1500 [facility] Last Admin: 06/14/20 15:29 Dose: 10 ml Documented by: Ondansetron HCl (Zofran Injection) 4 mg IVPUSH Q4H PRN PRN Reason: NAUSEA AND/OR VOMITING Last Admin: 06/13/20 21:15 Dose: 4 mg Documented by: Pantoprazole Sodium (Protonix Iv) 40 mg IVPUSH DAILY [facility] Last Admin: 06/14/20 09:47 Dose: 40 mg Documented by: Phenol/Menthol (Chloraseptic -) 1 spray MM Q6HPO PRN PRN Reason: SORE THROAT Last Admin: 06/08/20 00:44 Dose: 1 spray Documented by: - Objective Vital Signs: Vital Signs Temperature 98.5 F 06/15/20 06:00 Pulse Rate 72 06/15/20 06:00 Respiratory Rate 18 06/15/20 06:00 Blood Pressure 143/78 06/15/20 06:00 O2 Sat by Pulse Oximetry (%) 95 06/15/20 06:00 Cardiovascular: Yes: S1, S2 Respiratory: Yes: Regular, CTA Bilaterally Gastrointestinal: Yes: Normal Bowel Sounds, Soft. No: Tenderness Labs: CBC, BMP 06/14/20 06:59 06/15/20 06:58 INR, PTT INR 1.16 (0.82-1.09) 06/07/20 14:22 Problem List - Problems (1) SBO (small bowel obstruction) Assessment/Plan: - CTAP - High Grade SBO--Xrays noted--follow up CT noted--FUA noted - Repeat CT Today - Continue IVF - NGT low wall suction - Serial Abdominal Xrays - Monitor CBC, CMP - Monitor vitals - NPO -On Clinimex Code(s): K56.609 - UNSP INTESTNL OBST, UNSP TO PARTIAL VERSUS COMPLETE OBST (2) History of repair of hiatal hernia Assessment/Plan: per surgery Code(s): Z98.890 - OTHER SPECIFIED POSTPROCEDURAL STATES; Z87.19 - PERSONAL HISTORY OF OTHER DISEASES OF THE DIGESTIVE SYSTEM (3) Abdominal pain Code(s): R10.9 - UNSPECIFIED ABDOMINAL PAIN Qualifiers: Abdominal location: unspecified location Qualified Code(s): R10.9 - Unspecified abdominal pain (4) Severe obesity (BMI 35.0-35.9 with comorbidity) Assessment/Plan: - s/p Lap band, removal Code(s): E66.01 - MORBID (SEVERE) OBESITY DUE TO EXCESS CALORIES; Z68.35 - BODY MASS INDEX (BMI) 35.0-35.9, ADULT (5) Asthma Assessment/Plan: - stable - No acute flare Code(s): J45.909 - UNSPECIFIED ASTHMA, UNCOMPLICATED (6) Hypokalemia Assessment/Plan: replace and monitor 3.4 today Code(s): E87.6 - HYPOKALEMIA
[2020-06-15] MEDS ORDERED: cefTRIAXone SODIUM 1 GM VIAL ONE (09:16)
[2020-06-15] MEDS ORDERED: DEXTROSE 5%-WATER - 50 ML IVPB ONE (09:16)
[2020-06-15] MEDS: CEFTRIAXONE 1 GM in DEXTROSE 5%-WATER - 50 ML IVPB SCH (09:25)
[2020-06-15] MEDS: PANTOPRAZOLE SODIUM 40 MG VIAL IVPUSH SCH (09:25)
[2020-06-15 15:44] VITALS: BMI 35.5
[2020-06-15] MEDS: MULTIVIT INJ. ADULT COMBO WITH VIT K 1 COMBO 10 ML VIAL IV SCH (16:49)
[2020-06-15] MEDS ORDERED: oxyCODONE HCL 5 MG TABLET PO PRN (17:42)
--- NOTE | 2020-06-15 17:48 | PN ---
Progress Note (short form) - Note Progress Note: Afebrile; VSS Pt doing well + flatus Much less abdominal pain No N/V complaints Ambulating better P/E- Abd- less distended, soft, non-tender K+- 3.4 CT scan- resolving SB obstruction mildly dilated SB loops P- Clamp NGT and check residual PO pain meds Cont ambulation
[2020-06-16] MEDS: POTASSIUM CHLORIDE 20 MEQ in AMINO ACIDS 4.25%/D5W 1,000 ML IVPB SCH ×2 (04:15→16:01)
[2020-06-16 08:24] LABS: HEMATOCRIT 36.5 % (32.4-45.2); HEMOGLOBIN 12.3 GM/dl (10.7-15.3); MCH 28.6 pg (25.7-33.7); MCHC 33.7 g/dl (32.0-36.0); MEAN CELL VOLUME 85.1 fl (80-96); MEAN PLT VOLUME 7.8 fl (7.5-11.1); PLATELET COUNT 336 K/MM3 (134-434); RBC 4.29 M/mm3 (3.60-5.2); RDW 12.3 % (11.6-15.6); WHITE BLOOD COUNT 6.5 K/mm3 (4.0-10.8)
[2020-06-16 08:29] LABS: ALBUMIN 3.1 g/dl (3.4-5.0); BILIRUBIN,TOTAL 0.7 mg/dl (0.2-1); CALCIUM 9.2 mg/dl (8.5-10); CREATININE 0.6 mg/dl (0.55-1.3); POTASSIUM 3.9 mmol/L (3.5-5.1); TOT PROT 6.1 g/dl (6.4-8.2)
--- NOTE | 2020-06-16 09:22 | PN ---
Progress Note, Physician Chief Complaint: SBO Hypokalemia History of Present Illness: 60 yo F with history of Lap band-lap band removal(01/12), ventral hernia repair admitted for SBO. Followed by Dr Palomino. NGT clamped since yesterday, output 50 cc last evening, with no output this AM. + flatus, denies any N/V or abd pain, ambulating independently. - Current Medication List Current Medications: Active Medications Potassium Chloride 20 meq/ (Amino Acids) 1,010 mls @ 84 mls/hr IVPB Q12H [facility] Last Admin: 06/16/20 04:15 Dose: Not Given Documented by: Multivitamins/Minerals (Infuvite Adult -) 10 ml IV DAILY@1500 [facility] Last Admin: 06/15/20 16:49 Dose: Not Given Documented by: Ondansetron HCl (Zofran Odt -) 4 mg SL Q6H PRN PRN Reason: NAUSEA AND/OR VOMITING Oxycodone HCl (Roxicodone -) 5 mg PO Q4H PRN PRN Reason: PAIN LEVEL 1-5 Pantoprazole Sodium (Protonix Iv) 40 mg IVPUSH DAILY [facility] Last Admin: 06/15/20 09:25 Dose: 40 mg Documented by: Phenol/Menthol (Chloraseptic -) 1 spray MM Q6HPO PRN PRN Reason: SORE THROAT Last Admin: 06/08/20 00:44 Dose: 1 spray Documented by: - Objective Vital Signs: Vital Signs Temperature 98.7 F 06/16/20 06:00 Pulse Rate 78 06/16/20 06:00 Respiratory Rate 18 06/16/20 06:00 Blood Pressure 133/73 06/16/20 06:00 O2 Sat by Pulse Oximetry (%) 96 06/16/20 06:00 Constitutional: Yes: Well Nourished, No Distress, Calm, Obese Cardiovascular: Yes: Regular Rate and Rhythm Respiratory: Yes: Regular, CTA Bilaterally Gastrointestinal: Yes: Soft, Abdomen, Obese, Hypoactive Bowel Sounds Genitourinary: Yes: WNL Musculoskeletal: Yes: WNL Extremities: Yes: WNL Edema: No Peripheral Pulses WNL: Yes Neurological: Yes: Alert, Oriented Psychiatric: Yes: Alert, Oriented Labs: CBC, BMP 06/16/20 07:25 06/16/20 07:25 INR, PTT INR 1.16 (0.82-1.09) 06/07/20 14:22 Problem List - Problems (1) History of repair of hiatal hernia Problems reviewed: Yes Code(s): Z98.890 - OTHER SPECIFIED POSTPROCEDURAL STATES; Z87.19 - PERSONAL HISTORY OF OTHER DISEASES OF THE DIGESTIVE SYSTEM (2) Hypokalemia Assessment/Plan: -resolved -monitor trend Problems reviewed: Yes Code(s): E87.6 - HYPOKALEMIA (3) SBO (small bowel obstruction) Assessment/Plan: -CTAP yesterday shows improvement in SBO -AXR today -March d/c NGT and start with clear liquid diet if surgery agrees. Problems reviewed: Yes Code(s): K56.609 - UNSP INTESTNL OBST, UNSP TO PARTIAL VERSUS COMPLETE OBST Assessment/Plan See problem list
[2020-06-16] MEDS: ONDANSETRON *ODT* 4 MG TABLET SL PRN (09:34)
[2020-06-16] MEDS: MULTIVIT INJ. ADULT COMBO WITH VIT K 1 COMBO 10 ML VIAL IV SCH (16:01)
--- NOTE | 2020-06-16 18:55 | PN ---
Progress Note (short form) - Note Progress Note: Pt doing well NGT clamped for 24 hours No N/V + flatus Minimal residual P/E- Abd- transverse incision well-healed Ext- no swelling or edema Under sterile conditions, 22 gauge needle inserted into upper portion of transverse incision 40 cc of dark fluid removed K+-3.9 P- PO liquids as tolerated D/C NGT Check labs, K+ in AM Cont SCD's Encourage ambulation
[2020-06-16] MEDS: PANTOPRAZOLE 20 MG TABLET PO SCH (21:57)
[2020-06-17] MEDS: POTASSIUM CHLORIDE 20 MEQ in AMINO ACIDS 4.25%/D5W 1,000 ML IVPB SCH ×2 (02:02→15:06)
--- NOTE | 2020-06-17 08:33 | PN ---
Progress Note, Physician Chief Complaint: SBO Hypokalemia History of Present Illness: 60 yo F with history of Lap band, lap band removal (01/12), ventral hernia repair admitted for SBO. Followed by Dr Palomino. NGT discontinued yesterday, tolerating soft diet, + flatus, denies any N/V or abd pain, ambulating independently. - Current Medication List Current Medications: Active Medications Potassium Chloride 20 meq/ (Amino Acids) 1,010 mls @ 84 mls/hr IVPB Q12H [facility] Last Admin: 06/17/20 02:02 Dose: Not Given Documented by: Multivitamins/Minerals (Infuvite Adult -) 10 ml IV DAILY@1500 [facility] Last Admin: 06/16/20 16:01 Dose: Not Given Documented by: Ondansetron HCl (Zofran Odt -) 4 mg SL Q6H PRN PRN Reason: NAUSEA AND/OR VOMITING Last Admin: 06/16/20 09:34 Dose: 4 mg Documented by: Oxycodone HCl (Roxicodone -) 5 mg PO Q4H PRN PRN Reason: PAIN LEVEL 1-5 Pantoprazole Sodium (Protonix -) 20 mg PO BID [facility] Last Admin: 06/16/20 21:57 Dose: 20 mg Documented by: Phenol/Menthol (Chloraseptic -) 1 spray MM Q6HPO PRN PRN Reason: SORE THROAT Last Admin: 06/08/20 00:44 Dose: 1 spray Documented by: - Objective Vital Signs: Vital Signs Temperature 98.1 F 06/17/20 02:00 Pulse Rate 72 06/17/20 02:00 Respiratory Rate 16 06/17/20 02:00 Blood Pressure 142/74 06/17/20 02:00 O2 Sat by Pulse Oximetry (%) 99 06/17/20 02:00 Constitutional: Yes: Well Nourished, No Distress, Calm, Obese Cardiovascular: Yes: Regular Rate and Rhythm Respiratory: Yes: Regular, CTA Bilaterally Gastrointestinal: Yes: Normal Bowel Sounds, Soft, Abdomen, Obese Genitourinary: Yes: WNL Musculoskeletal: Yes: WNL Extremities: Yes: WNL Edema: No Peripheral Pulses WNL: Yes Neurological: Yes: Alert, Oriented Psychiatric: Yes: Alert, Oriented Labs: CBC, BMP 06/16/20 07:25 06/16/20 07:25 INR, PTT INR 1.16 (0.82-1.09) 06/07/20 14:22 Problem List - Problems (1) History of repair of hiatal hernia Problems reviewed: Yes Code(s): Z98.890 - OTHER SPECIFIED POSTPROCEDURAL STATES; Z87.19 - PERSONAL HISTORY OF OTHER DISEASES OF THE DIGESTIVE SYSTEM (2) Hypokalemia Assessment/Plan: -resolved -monitor trend Problems reviewed: Yes Code(s): E87.6 - HYPOKALEMIA (3) SBO (small bowel obstruction) Assessment/Plan: -Repeat CTAP shows improvement in SBO -AXR yesterday- SBO under partial resolution -PO intake as tolerated -Rest as per surgery Problems reviewed: Yes Code(s): K56.609 - UNSP INTESTNL OBST, UNSP TO PARTIAL VERSUS COMPLETE OBST Assessment/Plan See problem list
[2020-06-17 09:04] LABS: ALBUMIN 2.9 g/dl (3.4-5.0); BILIRUBIN,TOTAL 0.6 mg/dl (0.2-1); CALCIUM 8.9 mg/dl (8.5-10); CREATININE 0.6 mg/dl (0.55-1.3); POTASSIUM 3.5 mmol/L (3.5-5.1); TOT PROT 5.5 g/dl (6.4-8.2)
[2020-06-17] MEDS: PANTOPRAZOLE 20 MG TABLET PO SCH ×2 (09:26→21:18)
[2020-06-17] MEDS: ONDANSETRON *ODT* 4 MG TABLET SL PRN (09:26)
--- NOTE | 2020-06-17 12:48 | PN ---
Progress Note (short form) - Note Progress Note: Afebrile; VSS Pt doing well + BM, + flatus No N/V Tolerating PO clear liquids, soft diet Ambulating with no difficulty K+-3.5 I- Resolving SB obstruction P- PO soft diet as tolerated \ KCL replacement Continue ambulation Check lasbs in AM
[2020-06-17] MEDS: POTASSIUM CHLORIDE TABS 20 MEQ TABLET.ER (FP) PO SCH ×2 (15:00→21:16)
[2020-06-17] MEDS: MULTIVIT INJ. ADULT COMBO WITH VIT K 1 COMBO 10 ML VIAL IV SCH (15:06)
[2020-06-18] MEDS: POTASSIUM CHLORIDE 20 MEQ in AMINO ACIDS 4.25%/D5W 1,000 ML IVPB SCH (03:01)
[2020-06-18 07:40] LABS: ALBUMIN 2.9 g/dl (3.4-5.0); BILIRUBIN,TOTAL 0.5 mg/dl (0.2-1); CALCIUM 8.9 mg/dl (8.5-10); CREATININE 0.7 mg/dl (0.55-1.3); TOT PROT 5.5 g/dl (6.4-8.2)
[2020-06-18] MEDS: POTASSIUM CHLORIDE TABS 20 MEQ TABLET.ER (FP) PO SCH (09:43)
[2020-06-18] MEDS: PANTOPRAZOLE 20 MG TABLET PO SCH (09:43)
[2020-06-18 09:50] VITALS: BP 105/73; PULSE 78; TEMP 98.7
--- NOTE | 2020-06-18 10:12 | PN ---
Progress Note (short form) - Note Progress Note: Afebrile; VSS Pt doing well Had 2 loose BM yesterday (after PO Potassium) No N/V noted + flatus Tolerating PO liquids, soft foods P/E- Abd- binder in place Ext- no swelling or edema K+-4.0 P- D/C pt home Continue soft diet for 5 days, then advance to regular diet F/U in 7-10 days
--- NOTE | 2020-06-18 19:22 | DS ---
DATE OF ADMISSION: 06/07/2020 DATE OF DISCHARGE: 06/18/2020 HISTORY OF PRESENT ILLNESS/HOSPITAL COURSE: The patient is a 60-year-old woman who was admitted to [facility] on June 07, 2020, with severe abdominal pain, and she was brought into the emergency room for evaluation. A CAT scan done in the emergency department showed a high-grade small-bowel obstruction with dilated loops of small bowel. The patient was given an NG tube in the emergency room where she drained approximately 500 mL in the first hour, and then she was sent to the floor for admission. The patient remained with the NG tube and n.p.o. for a number of days. The NG tube showed gradually fluctuating result, sometimes as much as 1235-3297 in a 24-hour period, but then after a week it started being in the 500-600 range. During this time, the patient was n.p.o. and only had ice chips sparingly. She was also getting daily abdominal x-rays which showed gradually resolution of the small-bowel obstruction. Patient was getting out of bed, ambulating slowly, and also sitting up in a chair. A CAT scan done 5 days after admission showed still with some distention of small bowel, but less, and less signs of obstruction, showing signs of a resolving small-bowel obstruction. The patient remained with an NG tube and n.p.o. until CAT scan was done on June 15, 2020, which showed only very mild dilatation of a few loops of bowel and mostly resolution of small-bowel obstruction. The following day, on June 16, 2020, the patient's NG tube was removed, and she was begun on clear liquids. The patient tolerated clear liquid well, with having approximately 1-2 bowel movements a day from June 15 through June 18. Her labs were followed closely, and the only abnormality was a potassium dropping down to as low as 2.7, but that was gradually replaced to 3.4 and eventually on discharge on June 18 is up to 4.0. On June 18, 2020, with the patient ambulating well, having no further abdominal pain, and labs within normal limits, she is discharged home with instructions to remain on the soft diet which she has been tolerating well. She will remain on her soft diet for 5 days at home and then gradually advance to solid foods as tolerated. She will return to the office in 7-14 days for another evaluation postoperatively. JACKIE WATSON M.D. [id number]
== END 2020-06-18 12:00 | disposition home or self-care (01) | DRG 390 ==
LOC: FER 13:46 → FM/S 16:32
PROVIDERS: ADMIT Family Medicine; ATTEND Family Medicine
PROC: 0D9670Z Drainage of Stomach with Drainage Device, Via Natural or Artificial Opening (ICD-10-PCS; principal; 2020-06-07)
PROC: 0DP6X0Z Removal of Drainage Device from Stomach, External Approach (ICD-10-PCS; 2020-06-16)
DX: K56.609 Unspecified intestinal obstruction, unspecified as to partial versus complete obstruction (principal); F41.9 Anxiety disorder, unspecified; E87.6 Hypokalemia; K21.9 Gastro-esophageal reflux disease without esophagitis; J45.909 Unspecified asthma, uncomplicated; E66.01 Morbid (severe) obesity due to excess calories; Z68.35 Body mass index [BMI] 35.0-35.9, adult
CPT/HCPCS: 36415; 71045-TC-FY; 71046-TC-FY; 74019-TC-FY; 74176-TC; 74177-TC; 74190-TC-FY; 80048; 80053; 81003; 81015; 82272; 82550; 82962; 83605; 83690; 83735; 84100; 84484; 85025; 85027; 85610; 85730; 86850; 86900; 86901; 87040; 87086; 93005; 99285-25; J0131; Q0162; Q9967; U0003